=== PATIENT | male | born 1960 | race Caucasian/White ===

== ENCOUNTER 2016-11-02 17:49 | Inpatient (IN) | payer BC ==
[2016-11-02] MEDS ORDERED: NS 0.9% 1000 ML* 1,000 ML IV ONE (19:27)
[2016-11-02 19:38] LABS: Hematocrit 45 % (42-52); Hemoglobin 14.9 g/dl (14.0-18.0); Mean Corpuscular HGB Conc 33 g/dl (31-36); Mean Corpuscular Hemoglobin 27 pg (27-31); Mean Corpuscular Volume 82 fL (80-94); Mean Platelet Volume 9 um3 (7.4-10.4); Red Blood Count 5.49 10^6/ul (4.0-5.4); Red Cell Distribution Width 15 % (10.5-15); White Blood Count 8.7 10^3/ul (3.5-10.8)
[2016-11-02 19:39] LABS: Add Diff/Slide Review? Slide Review Added; Comments Flag Yes
[2016-11-02 20:03] LABS: Albumin 3.6 g/dL (3.2-5.2); BUN/Creatinine Ratio 14.4 (8-20); EGFR African American 48.5 (>60); EGFR Non-African American 37.7 (>60); Total Bilirubin 0.8 mg/dL (0.2-1.0); Total Protein 7.6 g/dL (6.4-8.9)
[2016-11-02] MEDS ORDERED: HYDROmorphone INJ* 1 MG/ML CARPUJECT SYRINGE IV ONE (20:16)
[2016-11-02] MEDS ORDERED: levETIRAcetam TAB* 500 MG PO ONE (20:16)
[2016-11-02] MEDS ORDERED: Labetalol IV* 5 MG/ML 20 ML VIAL IV PUSH ONE (20:16)
[2016-11-02 20:20] LABS: Erythrocyte Sed Rate 24 mm/Hr (0-20)
[2016-11-02] MEDS ORDERED: Iodixanol* (CONTRAST) 320 MG/ML 100 ML SDV IV ONE (20:20)
--- NOTE | 2016-11-02 20:21 | RAD ---
indication: Headache and right ear pain since injury 5 days earlier COMPARISON: None A CT scan of the brain and c-spine was performed without intravenous contrast enhancement. Contiguous axial sections were obtained from the lung apices through the vertex. BRAIN: There is a mixed attenuation subdural hematoma overlying the right cerebral hemisphere measuring up to 1.1 cm in thickness (image 17 of 36). There is approximately 7 mm of right to left midline shift with visible compression on the right lateral ventricles. No uncal or transtentorial herniation is identified. Otherwise the bess-white matter differentiation is adequately maintained. No significant bony abnormality is present. The mastoid air cells are appropriately aerated. The visualized paranasal sinuses are clear. C-SPINE: There is straightening of the normal cervical lordosis on the sagittal view images. The vertebral bodies and facet joints are otherwise appropriately aligned. There is no radiographically apparent fracture or dislocation of the cervical spine. Mild degenerative changes include loss of intervertebral disc height and mild early marginal osteophyte formation. There is no hyperdense material in the cervical canal to indicate hemorrhage. The visualized musculature and soft tissues are normal. There is no gross lymphadenopathy visualized. The visualized portion of the lung apices are clear. IMPRESSION: 1. Right cerebral hemisphere subdural hematoma measuring up to 1.2 cm in thickness causing approximately 7 mm of right to left midline shift with visible compression on the right lateral ventricles. 2. Nonspecific straightening of the normal cervical lordosis and mild degenerative changes without radiographically apparent traumatic fracture or dislocation. Findings were discussed with Dr. Stearns over the telephone at 2000 hours on November 02, 2016.
--- NOTE | 2016-11-02 20:32 | ED ---
Yue Berry Claudia, scribed for Cindy Stearns MD on 11/02/16 at 1915 . Headache - HPI Summary HPI Summary: 56 year old male presents to the ED with a MONTAGUE post mechanical fall. Pt notes he slipped and fell on ice and hit the back of his head on . He notes that he 'saw stars' when he hit is head. His notes that he has been acting normal except that he has been unable to sleep due to the pain. Pt notes he has had this dull MONTAGUE since Friday10/28/16. He describes the MONTAGUE as on the right side of his head with pain behind his right eye. Pt notes pain is aggravated when he closes his eyes. He notes intermittent pain on a scale of 4-10. Pt has not seen his PCP david Saldaña. Pt denies any PMHx of M[place]UE or migraines as well as any fever or chills. Pt denies any possible Carbon Monoxide exposure. - History Of Current Complaint Chief Complaint: EDHeadache Stated Complaint: FALL/HEAD INJURY,HEADACHES Time Seen by Provider: 11/02/16 18:50 Hx Obtained From: Patient Onset/Duration: Gradual Onset, Started days ago Initially Headache Was: Initial Pain Scale(0-10)= - 4-10 Currently Pain Is: Current Pain Scale(0-10)= - 4-10 Timing: Intermittent, Lasting: Character: Dull Location of Headache: Other: - right sided behind the right eye Aggravating Factor: Other - closing eyes - Allergies/Home Medications Allergies/Adverse Reactions: Allergies Allergy/AdvReac Type Severity Reaction Status Date / Time Nifedipine [From Procardia] Allergy Intermediate GI Upset Verified 11/02/16 18: 01 PMH/Surg Hx/FS Hx/Imm Hx Previously Healthy: Yes Endocrine/Hematology History: Denies: Hx Diabetes, Hx Thyroid Disease Cardiovascular History: Reports: Hx Coronary Artery Disease, Hx Hypertension, Other Cardiovascular Problems/Disorders - PERICARDIAL EFFUSION 2006, ANEURYSM Denies: Hx Angina, Hx Hypercholesterolemia, Hx Myocardial Infarction Respiratory History: Reports: Other Respiratory Problems/Disorders - chronic cough Denies: Hx Asthma, Hx Chronic Obstructive Pulmonary Disease (COPD) GI History: Denies: Hx Ulcer Sensory History: Reports: Hx Contacts or Glasses - reading glasses Opthamlomology History: Reports: Hx Contacts or Glasses - reading glasses - Surgical History Surgery Procedure, Year, and Place: 2006: tried to do a cardiac cath but ws unable to - ended up doing having a aurelio-cardial effusuion drained. Infectious Disease History: No Infectious Disease History: Denies: Hx Clostridium Difficile, Hx Hepatitis, Hx Human Immunodeficiency Virus (HIV), Hx of Known/Suspected MRSA, Hx Shingles, Hx Tuberculosis, Hx Known/ Suspected VRE, Hx Known/Suspected VRSA, History Other Infectious Disease, Traveled Outside the [place] in Last 30 Days - Family History Known Family History: Positive: Diabetes - Social History Lives: With Family Alcohol Use: None Substance Use Type: Reports: None Smoking Status (MU): Never Smoked Tobacco Review of Systems Constitutional: Negative Eyes: Other - pain behind his right eye ENT: Negative Cardiovascular: Negative Respiratory: Negative Gastrointestinal: Negative Genitourinary: Negative Musculoskeletal: Negative Skin: Negative Positive: Headache Psychological: Normal All Other Systems Reviewed And Are Negative: Yes Physical Exam Triage Information Reviewed: Yes Vital Signs On Initial Exam: Initial Vitals Temp Pulse Resp BP Pulse Ox 98.9 F 87 16 205/115 100 11/02/16 17:50 11/02/16 17:50 11/02/16 17:50 11/02/16 17:50 11/02/16 17:50 Vital Signs Reviewed: Yes Appearance: Positive: Well-Appearing, No Pain Distress Skin: Positive: Warm, Skin Color Reflects Adequate Perfusion, Dry Eyes: Positive: EOMI, JASKARAN Neck: Positive: Supple, Nontender Respiratory/Lung Sounds: Positive: Clear to Auscultation, Breath Sounds Present Cardiovascular: Positive: RRR. Negative: Murmur, Rub Abdomen Description: Positive: Nontender, Soft Bowel Sounds: Positive: Present Musculoskeletal: Positive: Strength/ROM Intact Neurological: Positive: Sensory/Motor Intact, Alert, Oriented to Person Place, Time, CN Intact II-III Psychiatric: Positive: Affect/Mood Appropriate Diagnostics - Vital Signs Vital Signs Temp Pulse Resp BP Pulse Ox 11/02/16 17:50 98.9 F 87 16 205/115 100 - Laboratory Lab Results: Lab Results 11/02/16 11/02/16 11/02/16 Range/Units 18:50 18:50 18:50 WBC 8.7 (3.5-10.8) 10^3/ul RBC 5.49 H (4.0-5.4) 10^6/ul Hgb 14.9 (14.0-18.0) g/dl Hct 45 (42-52) % MCV 82 (80-94) fL MCH 27 (27-31) pg MCHC 33 (31-36) g/dl RDW 15 (10.5-15) % Plt Count 184 (150-450) 10^3/ul MPV 9 (7.4-10.4) um3 Neut % (Auto) 67.5 (38-83) % Lymph % (Auto) 14.2 L (25-47) % [place] % (Auto) 7.7 (1-9) % Eos % (Auto) 8.3 H (0-6) % Baso % (Auto) 2.3 H (0-2) % Absolute Neuts (auto) 5.9 (1.5-7.7) 10^3/ul Absolute Lymphs (auto) 1.2 (1.0-4.8) 10^3/ul Absolute Monos (auto) 0.7 (0-0.8) 10^3/ul Absolute Eos (auto) 0.7 H (0-0.6) 10^3/ul Absolute Basos (auto) 0.2 (0-0.2) 10^3/ul Absolute Nucleated RBC 0.01 10^3/ul Nucleated RBC % 0.1 ESR 24 H (0-20) mm/Hr Sodium 135 (133-145) mmol/L Potassium 4.0 (3.5-5.0) mmol/L Chloride 103 (101-111) mmol/L Carbon Dioxide 24 (22-32) mmol/L Anion Gap 8 (2-11) mmol/L BUN 27 H (6-24) mg/dL Creatinine 1.87 H (0.67-1.17) mg/dL Est GFR ( Amer) 48.5 (>60) Est GFR (Non-Af Amer) 37.7 (>60) BUN/Creatinine Ratio 14.4 (8-20) Glucose 115 H (70-100) mg/dL Lactic Acid 1.3 (0.5-2.0) mmol/L Calcium 9.0 (8.6-10.3) mg/dL Total Bilirubin 0.80 (0.2-1.0) mg/dL AST 34 (13-39) U/L ALT 24 (7-52) U/L Alkaline Phosphatase 101 (34-104) U/L Total Protein 7.6 (6.4-8.9) g/dL Albumin 3.6 (3.2-5.2) g/dL Globulin 4.0 (2-4) g/dL Albumin/Globulin Ratio 0.9 L (1-3) Result Diagrams: 11/02/16 18:50 11/02/16 18:50 Lab Statement: Any lab studies that have been ordered have been reviewed, and results considered in the medical decision making process. - CT BRAIN CT CT Interpretation: Positive (See Comments) - RIGHT CEREBRAL HEMISPHERE SUBDURAL HEMATOMA MEASURING 1.2CM IN THICKNESS CAUSING APPROXIMATELY 7MM OF RIGHT TO LEFT MIDLINE SHIFT WITH VISIBLE COMPRESSION ON THE RIGHT LATERAL VENTRICLES. NON SPECIFIC STRAIGHTENING OF THE NORMAL CERVICAL LORDOSIS AND MILD DEGENERATIVE CHNAGES WITHOUT RADIOGRAPHICALY APPARENT TRAUMATIC FRACTURE OF DISOLCATION. FINDINGS WERE DISCUSSED WITH DR. STEARNS AT [address] Interpretation Completed By: Radiologist CERVICAL SPINE CT CT Interpretation: Positive (See Comments) - RIGHT CEREBRAL HEMISPHERE SUBDURAL HEMATOMA MEASURING 1.2CM IN THICKNESS CAUSING APPROXIMATELY 7MM OF RIGHT TO LEFT MIDLINE SHIFT WITH VISIBLE COMPRESSION ON THE RIGHT LATERAL VENTRICLES. NON SPECIFIC STRAIGHTENING OF THE NORMAL CERVICAL LORDOSIS AND MILD DEGENERATIVE CHANGES WITHOUT RADIOGRAPHICALY APPARENT TRAUMATIC FRACTURE OF DISOLCATION. FINDINGS WERE DISCUSSED WITH DR. STEARNS AT [address] Interpretation Completed By: Radiologist - EKG 18:04 EKG Rhythm: Atrial Fibrillation - 84 beats/min EKG Interpretation: LBBB non-changed from 05/09/2015 Re-Evaluation - Re-Evaluation 1 Re-Evaluation Time: 19:38 Comment: Brain CT results are discussed with patient and family. It is also discussed that Dr. Cardona is notified of the patient. Headache Course/Dx - Course Course Of Treatment: 56 yo male who fell on Fri of last week with development of M[place] subsequent subdural found today he has been taking asa at home. Dr. Cardona is consutling on pt asked for 6 pack of platelets to be given and for bp to be lowered with labetalol. Pt has family hx of sah and so he will either get a CTa head and neck tonight or an MRI angio tomorrow due to renal insufficiency - Diagnoses Provider Diagnoses: Subdural hematoma, Hypertension, Chronic renal insufficiency - Physician Notifications Discussed Care Of Patient With: Dr Cardona is notified of the patient as well as the results of the Brain CT. Dr. Cardona will come to ED and consult with the patient. Dr. Cardona will admit patient to [facility] [place]. Time Discussed With Above Provider: 19:43 Discharge - Discharge Plan Condition: Stable Disposition: ADMITTED TO [facility] The documentation as recorded by the Yue moy Claudia accurately reflects the service I personally performed and the decisions made by , Cindy Stearns MD.
--- NOTE | 2016-11-02 20:33 | ED ---
Head Injury - HPI Summary HPI Summary: 56 year old male presents to the ED with a MONTAGUE post mechanical fall. Pt notes he slipped and fell on ice and hit the back of his head on . He notes that he 'saw stars' when he hit is head. His notes that he has been acting normal except that he has been unable to sleep due to the pain. Pt notes he has had this dull MONTAGUE since Friday10/28/16. He describes the [place] as on the right side of his head with pain behind his right eye. Pt notes pain is aggravated when he closes his eyes. He notes intermittent pain on a scale of 4-10. Pt has not seen his PCP fot Sx. Pt denies any PMHx of [place] or migraines as well as any fever or chills. Pt denies any possible Carbon Monoxide exposure. - History Of Current Complaint Chief Complaint: EDHeadache Stated Complaint: FALL/HEAD INJURY,HEADACHES Time Seen by Provider: 11/02/16 18:50 Hx Obtained From: Patient Mechanism Of Injury: Fall From Height Of:, Fall From A Standing Position Onset/Duration: Started Days Ago - 10, Traumatic Onset of Pain: Days - 5 Severity Currently: Severe Severity Initially: Mild Pain Intensity: 8 Pain Scale Used: 0-10 Numeric Location of Head Injury: Temporal Location: Discrete At: - right Character: Sharp Aggravating Factor(s): Other: - eye closing Associated Signs And Symptoms: Negative Anticoagulant Therapy: ASA - He took ASA and Ibprogen for headache for last 5 days, Platelet Inhibitors - Risk Factors SDH Risk Factor: Male, Recent Trauma - Allergies/Home Medications Allergies/Adverse Reactions: Allergies Allergy/AdvReac Type Severity Reaction Status Date / Time Nifedipine [From Procardia] Allergy Intermediate GI Upset Verified 11/02/16 18: 01 PMH/Surg Hx/FS Hx/Imm Hx Previously Healthy: Yes Endocrine/Hematology History: Denies: Hx Diabetes, Hx Thyroid Disease Cardiovascular History: Reports: Hx Aneurysm - mother side relatives, Hx Coronary Artery Disease, Hx Hypertension, Other Cardiovascular Problems/ Disorders - PERICARDIAL EFFUSION 2005, ANEURYSM Denies: Hx Angina, Hx Hypercholesterolemia, Hx Myocardial Infarction Respiratory History: Reports: Other Respiratory Problems/Disorders - chronic cough Denies: Hx Asthma, Hx Chronic Obstructive Pulmonary Disease (COPD) GI History: Denies: Hx Ulcer Sensory History: Reports: Hx Contacts or Glasses - reading glasses Opthamlomology History: Reports: Hx Contacts or Glasses - reading glasses - Surgical History Surgery Procedure, Year, and Place: 2006: tried to do a cardiac cath but ws unable to - ended up doing having a aurelio-cardial effusuion drained. Infectious Disease History: No Infectious Disease History: Denies: Hx Clostridium Difficile, Hx Hepatitis, Hx Human Immunodeficiency Virus (HIV), Hx of Known/Suspected MRSA, Hx Shingles, Hx Tuberculosis, Hx Known/ Suspected VRE, Hx Known/Suspected VRSA, History Other Infectious Disease, Traveled Outside the [place] in Last 30 Days - Social History Alcohol Use: None Substance Use Type: Reports: None Smoking Status (MU): Never Smoked Tobacco Review of Systems Constitutional: Negative Eyes: Negative ENT: Negative Cardiovascular: Negative Respiratory: Negative Gastrointestinal: Negative Positive: see HPI All Other Systems Reviewed And Are Negative: No Physical Exam Triage Information Reviewed: Yes Vital Signs On Initial Exam: Initial Vitals Temp Pulse Resp BP Pulse Ox 98.9 F 87 16 205/115 100 11/02/16 17:50 11/02/16 17:50 11/02/16 17:50 11/02/16 17:50 11/02/16 17:50 Vital Signs Reviewed: Yes Appearance: Positive: Pain Distress Skin: Positive: Warm Head/Face: Positive: Normal Head/Face Inspection ENT: Positive: Normal ENT inspection Dental: Positive: Gross Decay/Caries @ Neck: Positive: Supple Respiratory/Lung Sounds: Positive: Clear to Auscultation Cardiovascular: Positive: Normal Abdomen Description: Positive: Nontender Bowel Sounds: Positive: Present Neurological: Positive: Normal, Sensory/Motor Intact, Alert, Oriented to Person Place, Time, CN Intact II-III, Reflexes Intact Psychiatric: Positive: Normal - Matias Coma Scale Best Eye Response: 4 - Spontaneous Best Motor Response: 6 - Obeys Commands Best Verbal Response: 5 - Oriented Procedures - Procedure Summary Procedure Summary: NO Diagnostics - Vital Signs Vital Signs Temp Pulse Resp BP Pulse Ox 11/02/16 17:50 98.9 F 87 16 205/115 100 - Laboratory Lab Results: Lab Results 11/02/16 11/02/16 11/02/16 Range/Units 18:50 18:50 18:50 WBC 8.7 (3.5-10.8) 10^3/ul RBC 5.49 H (4.0-5.4) 10^6/ul Hgb 14.9 (14.0-18.0) g/dl Hct 45 (42-52) % MCV 82 (80-94) fL MCH 27 (27-31) pg MCHC 33 (31-36) g/dl RDW 15 (10.5-15) % Plt Count 184 (150-450) 10^3/ul MPV 9 (7.4-10.4) um3 Neut % (Auto) 67.5 (38-83) % Lymph % (Auto) 14.2 L (25-47) % [place] % (Auto) 7.7 (1-9) % Eos % (Auto) 8.3 H (0-6) % Baso % (Auto) 2.3 H (0-2) % Absolute Neuts (auto) 5.9 (1.5-7.7) 10^3/ul Absolute Lymphs (auto) 1.2 (1.0-4.8) 10^3/ul Absolute Monos (auto) 0.7 (0-0.8) 10^3/ul Absolute Eos (auto) 0.7 H (0-0.6) 10^3/ul Absolute Basos (auto) 0.2 (0-0.2) 10^3/ul Absolute Nucleated RBC 0.01 10^3/ul Nucleated RBC % 0.1 ESR 24 H (0-20) mm/Hr Sodium 135 (133-145) mmol/L Potassium 4.0 (3.5-5.0) mmol/L Chloride 103 (101-111) mmol/L Carbon Dioxide 24 (22-32) mmol/L Anion Gap 8 (2-11) mmol/L BUN 27 H (6-24) mg/dL Creatinine 1.87 H (0.67-1.17) mg/dL Est GFR ( Amer) 48.5 (>60) Est GFR (Non-Af Amer) 37.7 (>60) BUN/Creatinine Ratio 14.4 (8-20) Glucose 115 H (70-100) mg/dL Lactic Acid 1.3 (0.5-2.0) mmol/L Calcium 9.0 (8.6-10.3) mg/dL Total Bilirubin 0.80 (0.2-1.0) mg/dL AST 34 (13-39) U/L ALT 24 (7-52) U/L Alkaline Phosphatase 101 (34-104) U/L Total Protein 7.6 (6.4-8.9) g/dL Albumin 3.6 (3.2-5.2) g/dL Globulin 4.0 (2-4) g/dL Albumin/Globulin Ratio 0.9 L (1-3) Result Diagrams: 11/03/16 07:26 11/03/16 05:43 Lab Statement: Any lab studies that have been ordered have been reviewed, and results considered in the medical decision making process. - CT BRAIN CT CT Interpretation: Positive (See Comments) - RIGHT CEREBRAL HEMISPHERE SUBDURAL HEMATOMA MEASURING 1.2CM IN THICKNESS CAUSING APPROXIMATELY 7MM OF RIGHT TO LEFT MIDLINE SHIFT WITH VISIBLE COMPRESSION ON THE RIGHT LATERAL VENTRICLES. NON SPECIFIC STRAIGHTENING OF THE NORMAL CERVICAL LORDOSIS AND MILD DEGENERATIVE CHNAGES WITHOUT RADIOGRAPHICALY APPARENT TRAUMATIC FRACTURE OF DISOLCATION. FINDINGS WERE DISCUSSED WITH DR. CEVALLOS AT [address] Interpretation Completed By: Radiologist CERVICAL SPINE CT CT Interpretation: Positive (See Comments) - RIGHT CEREBRAL HEMISPHERE SUBDURAL HEMATOMA MEASURING 1.2CM IN THICKNESS CAUSING APPROXIMATELY 7MM OF RIGHT TO LEFT MIDLINE SHIFT WITH VISIBLE COMPRESSION ON THE RIGHT LATERAL VENTRICLES. NON SPECIFIC STRAIGHTENING OF THE NORMAL CERVICAL LORDOSIS AND MILD DEGENERATIVE CHANGES WITHOUT RADIOGRAPHICALY APPARENT TRAUMATIC FRACTURE OF DISOLCATION. FINDINGS WERE DISCUSSED WITH DR. CEVALLOS AT [address] Interpretation Completed By: Radiologist - EKG 18:04 EKG Rhythm: Atrial Fibrillation - 84 beats/min EKG Interpretation: LBBB non-changed from 05/09/2015 Re-Evaluation - Re-Evaluation 1 Re-Evaluation Time: 19:38 Comment: Brain CT results are discussed with patient and family. Head Injury Course/Dx Assessment/Plan: CTA or MRA to rule out aneurysm. Control SBP less than 160 mmhg ,. Platelet transfusion due to ASA and SDH ,. Neurocheck q2h for 12 h then q4h,. Repeat CT head tomorrow,. keppra 750 mmhg bid po for 7 days ,. advance care tomorrow after stable CT. - Diagnoses Differential Diagnosis/HQI/PQRI: Hematoma - Right acute on subacute SDH Provider Diagnoses: Subdural hematoma, Hypertension, Chronic renal insufficiency During the Visit The Following Alert/Code Occurred: Trauma - [facility] - Physician Notifications Discussed Care Of Patient With: ED and patient family Instructed by Provider To: Admit As Inpatient - repeat CT head tomorrow, CTA or MRA to rule out aneurysm Control SBP less than 160 mmhg Platelet transfusion due to ASA and SDH Neurocheck q2h for 12 h then q4h keppra 750 mmhg bid po for 7 days advance care tomorrow after stable CT Admit/Transition Orders Completed By ED Provider: No - Critical Care Time Critical Care Time: 30-74 min Discharge - Discharge Plan Condition: Stable Disposition: ADMITTED TO [facility]
--- NOTE | 2016-11-02 21:29 | RAD ---
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 COMPARISON: Same day CT of the brain without contrast TECHNIQUE: A CT angiogram of the head and neck was performed with 80 cc of Visipaque 320. Contiguous axial sections were obtained from the thoracic inlet through the north fork of Nielson. Images were reconstructed in the sagittal, coronal planes and in a 3-D volume rendered format. The distal cervical internal carotid artery diameter is used as the denominater for stenosis measurement. CTA NECK: The common and internal carotid arteries are patent without hemodynamically significant stenosis. Right: Just below the bifurcation the right common carotid artery measures 8 mm in diameter and the internal carotid artery measures 8 mm in diameter just beyond the bifurcation indicating 0% stenosis at the carotid bulb. There is a small amount of calcified atherosclerosis at the right carotid bulb. Left: Just below the bifurcation the left common carotid artery measures 8 mm in diameter and the internal carotid artery measures 8 mm in diameter just beyond the bifurcation indicating 0% stenosis at the carotid bulb. There is a moderate amount of calcified atherosclerosis at the left carotid bulb. The vertebral arteries are patent without gross abnormality. CTA of the brain: The internal carotid, anterior and middle cerebral arteries appear are patent without high grade stenosis or occlusion. The vertebral, basilar and posterior cerebral arteries appear patent without high grade stenosis or occlusion. The left posterior communicating artery is extremely diminutive or incomplete. Communicating with the distal branches of the right middle cerebral artery along the lateral aspect of the right temporal lobe (for example image 224 of 299), the arteries appear hypertrophied relative to the noninjured contralateral side. Extending from this area of arterial hypertrophy is an asymmetric blood vessel (for example image 208 of 299) that can be followed inferiorly eventually communicating with the right transverse sinus. Again seen is a 1.2 cm in thickness subdural hematoma. There is no arterial phase filling in the space to indicate active hemorrhage. IMPRESSION: 1. Left greater than right calcified atherosclerosis of the carotid bulbs with no evidence of pathologic carotid artery stenosis. 2. Again seen is a right hemispheric subdural hematoma without active arterial phase hemorrhage into the extra-axial bleed. 3. The distal branches of the right middle cerebral artery adjacent to the subdural hematoma are hypertrophied relative to the contralateral side. There is an early filling blood vessel traveling inferiorly along the right temporal lobe that appears to communicate with the right transverse sinus. 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 Findings were discussed with Dr. Stearns over the telephone at 2120 hours on November 02, 2016.
[2016-11-02 21:38] LABS: Urine Bacteria Absent (Absent); Urine Bilirubin Negative (Negative); Urine Glucose Negative (Negative); Urine Nitrite Negative (Negative)
[2016-11-02] MEDS ORDERED: Senna TAB PO PRN (21:57)
[2016-11-02] MEDS ORDERED: Docusate CAP* 100 MG PO PRN (21:57)
[2016-11-02] MEDS ORDERED: Ondansetron INJ* 2 MG/ML VIAL IV PRN (21:57)
[2016-11-02 22:43] LABS: Salicylate 3.1 mg/dL (<30)
[2016-11-03] MEDS: Morphine INJ* 2 MG/ML 1 ML CARPUJECT IV PRN ×2 (00:35→04:43)
[2016-11-03] MEDS: hydrALAZINE IV* 20 MG/ML VIAL IV SLOW PU PRN ×2 (00:41→11:20)
[2016-11-03] MEDS: oxyCODONE TAB* 5 MG TAB PO PRN ×3 (02:13→13:21)
[2016-11-03] MEDS ORDERED: Labetalol IV* 5 MG/ML 20 ML VIAL IV PUSH ONE ×2 (04:25→19:37)
[2016-11-03 06:01] LABS: Hematocrit 43 % (42-52); Hemoglobin 14.3 g/dl (14.0-18.0); Mean Corpuscular HGB Conc 34 g/dl (31-36); Mean Corpuscular Hemoglobin 27 pg (27-31); Mean Corpuscular Volume 81 fL (80-94); Mean Platelet Volume 8 um3 (7.4-10.4); Red Blood Count 5.27 10^6/ul (4.0-5.4); Red Cell Distribution Width 15 % (10.5-15); White Blood Count 9.6 10^3/ul (3.5-10.8)
--- NOTE | 2016-11-03 06:08 | HP ---
HISTORY AND PHYSICAL: DATE OF ADMISSION: 11/02/16 TIME OF EVALUATION: 2199. PRIMARY CARE PHYSICIAN: Bruce Browning MD CHIEF COMPLAINT: Headache. HISTORY OF PRESENT ILLNESS: This is a 56-year-old male with a past medical history of CKD, atrial fibrillation, hypertension, who presents to the emergency room with worsening headache. The patient states on the , he slipped and fell on the ice. He denied any loss of consciousness. No nausea or vomiting at that time. On the , his headache pain began to become more worse on the right side. He started taking aspirin, which seemed to be helping and then on , the , the aspirin was not helping, so he took way more than he should have and he states he took about 10 tablets of aspirin per day for the past 7 days. He also is taking a lot of Advil, he states about 20 tablets over the week, and the pain continued to get worse. The pain is located over the right side of his head. He denies any blurry vision. No nausea or vomiting. No chest pain. No shortness of breath. Otherwise, remaining review of systems is negative. In the emergency room, the patient had a CAT scan done and he was found to have a right cerebral hemisphere subdural hematoma with 7 mm of [id number] midline shift with visible compressions on the right lateral ventricle. Dr. Cardona from Neurosurgery was consulted and he came in to evaluate the patient and he recommended overnight admission with platelets, Keppra, and followup in the morning. He did recommend the patient could go to the floor and have neuro checks q.2 hours overnight. In the emergency room, the patient was given platelets. He was given Dilaudid, labetalol, Keppra 750 mg, and a liter of fluids. PAST MEDICAL HISTORY: 1. Hypertension. 2. History of pericardial effusion requiring a pericardial window. 3. History of AAA. 4. CKD. 5. Atrial fibrillation. MEDICATIONS: The patient states he is on several medications. His took his wallet home that has his list of medications. ALLERGIES: Allergic to NIFEDIPINE. FAMILY HISTORY: Reviewed and noncontributory. 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 He lives with his , Rosalba Cannon, who is his healthcare proxy, . He denies any tobacco use. He quit alcohol in 1980. No illicit drug use. CODE STATUS: Full code. REVIEW OF SYSTEMS: As mentioned in the HPI. PHYSICAL EXAMINATION GENERAL: The patient in some discomfort secondary to his pain. VITAL SIGNS: Temp is 98.9, pulse rate is 90, respiratory rate is 18, oxygen saturation is 96% on room air, blood pressure is 190/100. HEENT: Pupils are equal and reactive, anicteric. Head normocephalic. Unable to appreciate any hematoma or skull depression. NECK: Supple. No lymphadenopathy. No nuchal rigidity. Full range of motion. RESPIRATORY: Clear to auscultation. No wheezes, rhonchi, or rales. CARDIAC: Irregularly irregular rate and rhythm, systolic murmur most prominent over the left sternal base. ABDOMEN: Soft, nontender, and nondistended. EXTREMITIES: No clubbing, cyanosis, or edema. +1 DPs. NEUROLOGICAL: Alert and oriented x3. No focal neurologic deficits. DIAGNOSTIC STUDIES/LAB DATA: White count 8.7, hemoglobin 14.9, hematocrit 45, platelets 184. Sed rate is 24. Sodium 135, potassium 4, chloride 103, bicarb 24, BUN 27, creatinine 1.87, glucose 115. Urinalysis unremarkable. Radiographic data: Head CT: Right cerebral hemisphere subdural hematoma measuring up to 1.2 cm in thickness causing approximately 7 mm of the right-to- left midline shift with visible compression on the right lateral ventricle, nonspecific straightening of the normal cervical lordosis, and mild degenerative changes without radiographical apparent traumatic fracture or dislocation. Cervical spine CT as above. Head CTA: Left greater than right calcified atherosclerosis of the carotid bulb. No evidence of pathologic carotid artery stenosis. Again, seen is the right hemispheric subdural hematoma without active arterial phase hemorrhage into the extraaxial . At distal branch of the right middle cerebral artery , adjacent to the subdural hematoma, hypertrophy relative to the contralateral side, there is an early filling blood vessel traveling inferiorly along the right temporal lobe that appears to communicate with the right transverse sinus. 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 EKG shows atrial fibrillation with left bundle branch block with no significant change from prior EKG. ASSESSMENT AND PLAN: This is a 56-year-old male who presents with worsening headache after falling on the , found to have a subacute right subdural hematoma. Subdural hematoma. Assessment: The patient has no neurologic findings. This is subacute as he did fall on the . He has been taking significant amount of aspirin and ibuprofen. Neurosurgery, Dr. Cardona, evaluated him and recommended admission for observation. The patient is to be getting platelets. Plan: Admission to telemetry. The patient is getting platelets. We will check a salicylate level in the setting of his high aspirin quantity as he reported. We will order a CT in the morning as recommended by Neurosurgery. Continue him on the Keppra 750 mg p.o. b.i.d. for 7 days for prophylaxis. Goal blood pressure is less than 160 per Neurosurgery. Neuro checks q.2 hours, pain control, and antiemetics. CHRONIC MEDICAL PROBLEMS: 1. We will hold all anticoagulation, we will get a med rec in the morning to resume his home medications as prescribed. 2. FEN. Place him on a heart-healthy diet. 3. DVT prophylaxis. Monitor risk, place him on SCDs. 4. Code status, full code. PATIENT TIME: Greater than 45 minutes was spent doing the history and physical , more than half the time was spent in direct patient contact. CC: Bruce Browning MD* [id number]/CPS #: [id number]
[2016-11-03 06:12] LABS: BUN/Creatinine Ratio 15.3 (8-20); Calcium 8.9 mg/dL (8.6-10.3); EGFR African American 54.1 (>60); EGFR Non-African American 42.1 (>60); Potassium 3.8 mmol/L (3.5-5.0)
[2016-11-03 07:59] LABS: Mean Platelet Volume 8 um3 (7.4-10.4)
[2016-11-03] MEDS: levETIRAcetam TAB* 500 MG PO SCH ×2 (09:10→21:43)
--- NOTE | 2016-11-03 11:04 | RAD ---
INDICATION: Follow-up imaging in a patient with a subdural hematoma and arteriovenous fistula identified on previous day CT/CTA. COMPARISON: CT brain November 02, 2016 TECHNIQUE: Contiguous axial sections of the brain were obtained from the skull base to the vertex without contrast. FINDINGS: Again seen is a mostly hyperattenuating heterogeneous collection external to the right hemisphere measuring about 1.1 cm in greatest thickness. This subdural hematoma is exerting right to left mass effect causing compression of the right anterior and posterior lateral ventricle and approximately millimeters of midline shift. The brain is otherwise normal in appearance. No significant focal osseous abnormality is present. The visualized portion of the paranasal sinuses and mastoid air cells appear clear. IMPRESSION: No significant change in the right hemisphere subdural hematoma resulting in compression of the ventricle and 8 mm of right to left midline shift.
--- NOTE | 2016-11-03 11:09 | PN ---
Progress Note - Progress Note Note: C/O headache better, No N & V. No visual changes, no weakness, numbness and seizure . Objective Vital Signs Temp 97.7 F 11/03/16 07:40 Pulse 59 11/03/16 07:40 Resp 18 11/03/16 09:18 BP 148/88 11/03/16 07:40 Pulse Ox 93 11/03/16 07:40 Intake & Output 11/02/16 11/03/16 11/03/16 19:59 07:59 19:59 Intake Total 301 240 Balance 301 240 Weight 264 lb 14.4 oz 245 lb 14.4 oz Intake: IV Fluids 12 NS (0.9%) 12 Oral 75 240 Platelets 214 Other: Estimated Void Medium # Bowel Movements 0 # Voids 2 Physical Exam: GEN: No apparent distress Mental Status: Awake and oriented x 3 Cranial Nerves: PERRL, face symmetric, tongue midline , Motor Exam: Strength equal and strong bilaterally, no drift Sensory Exam: Sensation intact grossly to light touch, no extinction WBC 9.4 10^3/ul (3.5-10.8) 11/03/16 05:47 RBC 3.86 10^6/ul (4.0-5.4) L 11/03/16 05:47 Hgb 11.5 g/dl (12.0-16.0) L 11/03/16 05:47 Hct 35 % (35-47) 11/03/16 05:47 MCV 89 fL (80-97) 11/03/16 05:47 MCH 30 pg (27-31) 11/03/16 05:47 MCHC 33 g/dl (31-36) 11/03/16 05:47 RDW 13 % (10.5-15) 11/03/16 05:47 Plt Count 320 10^3/ul (150-450) 11/03/16 05:47 MPV 8 um3 (7.4-10.4) 11/03/16 05:47 Neut % (Auto) 80.8 % (38-83) 11/03/16 05:47 Lymph % (Auto) 12.9 % (25-47) L 11/03/16 05:47 [place] % (Auto) 6.0 % (1-9) 11/03/16 05:47 Eos % (Auto) 0 % (0-6) 11/03/16 05:47 Baso % (Auto) 0.3 % (0-2) 11/03/16 05:47 Absolute Neuts (auto) 7.5 10^3/ul (1.5-7.7) 11/03/16 05:47 Absolute Lymphs (auto) 1.2 10^3/ul (1.0-4.8) 11/03/16 05:47 Absolute Monos (auto) 0.6 10^3/ul (0-0.8) 11/03/16 05:47 Absolute Eos (auto) 0 10^3/ul (0-0.6) 11/03/16 05:47 Absolute Basos (auto) 0 10^3/ul (0-0.2) 11/03/16 05:47 Absolute Nucleated RBC 0 10^3/ul 11/03/16 05:47 Nucleated RBC % 0 11/03/16 05:47 INR (Anticoag Therapy) 0.94 (0.89-1.11) 11/02/16 20:05 Sodium 136 mmol/L (133-145) 11/02/16 20:05 Potassium 3.6 mmol/L (3.5-5.0) 11/02/16 20:05 Chloride 107 mmol/L (101-111) 11/02/16 20:05 Carbon Dioxide 25 mmol/L (22-32) 11/02/16 20:05 Anion Gap 4 mmol/L (2-11) 11/02/16 20:05 BUN 20 mg/dL (6-24) 11/02/16 20:05 Creatinine 0.57 mg/dL (0.51-0.95) 11/02/16 20:05 Est GFR ( Amer) 144.4 (>60) 11/02/16 20:05 Est GFR (Non-Af Amer) 112.3 (>60) 11/02/16 20:05 BUN/Creatinine Ratio 35.1 (8-20) H 11/02/16 20:05 Glucose 98 mg/dL (70-100) 11/02/16 20:05 Calcium 7.9 mg/dL (8.6-10.3) L 11/02/16 20:05 Total Bilirubin 0.30 mg/dL (0.2-1.0) 11/02/16 20:05 AST 14 U/L (13-39) 11/02/16 20:05 ALT 11 U/L (7-52) 11/02/16 20:05 Alkaline Phosphatase 44 U/L (34-104) 11/02/16 20:05 Total Protein 6.4 g/dL (6.4-8.9) 11/02/16 20:05 Albumin 3.7 g/dL (3.2-5.2) 11/02/16 20:05 Globulin 2.7 g/dL (2-4) 11/02/16 20:05 Albumin/Globulin Ratio 1.4 (1-3) 11/02/16 20:05 Beta HCG, Quant < 0.60 mIU/mL 11/02/16 20:05 Laboratory Results WBC 9.6 10^3/ul (3.5-10.8) 11/03/16 05:43 RBC 5.27 10^6/ul (4.0-5.4) 11/03/16 05:43 Hgb 14.3 g/dl (14.0-18.0) 11/03/16 05:43 Hct 43 % (42-52) 11/03/16 05:43 MCV 81 fL (80-94) 11/03/16 05:43 MCH 27 pg (27-31) 11/03/16 05:43 MCHC 34 g/dl (31-36) 11/03/16 05:43 RDW 15 % (10.5-15) 11/03/16 05:43 Plt Count 196 10^3/ul (150-450) 11/03/16 07:26 MPV 8 um3 (7.4-10.4) 11/03/16 07:26 Neut % (Auto) 66.2 % (38-83) 11/03/16 05:43 Lymph % (Auto) 14.7 % (25-47) L 11/03/16 05:43 [place] % (Auto) 10.5 % (1-9) H 11/03/16 05:43 Eos % (Auto) 7.4 % (0-6) H 11/03/16 05:43 Baso % (Auto) 1.2 % (0-2) 11/03/16 05:43 Absolute Neuts (auto) 6.3 10^3/ul (1.5-7.7) 11/03/16 05:43 Absolute Lymphs (auto) 1.4 10^3/ul (1.0-4.8) 11/03/16 05:43 Absolute Monos (auto) 1.0 10^3/ul (0-0.8) H 11/03/16 05:43 Absolute Eos (auto) 0.7 10^3/ul (0-0.6) H 11/03/16 05:43 Absolute Basos (auto) 0.1 10^3/ul (0-0.2) 11/03/16 05:43 Absolute Nucleated RBC 0 10^3/ul 11/03/16 05:43 Nucleated RBC % 0 11/03/16 05:43 ESR 24 mm/Hr (0-20) H 11/02/16 18:50 INR (Anticoag Therapy) 1.15 (0.89-1.11) H 11/03/16 05:43 APTT 33.3 seconds (26.0-36.3) 11/03/16 05:43 Sodium 135 mmol/L (133-145) 11/03/16 05:43 Potassium 3.8 mmol/L (3.5-5.0) 11/03/16 05:43 Chloride 104 mmol/L (101-111) 11/03/16 05:43 Carbon Dioxide 25 mmol/L (22-32) 11/03/16 05:43 Anion Gap 6 mmol/L (2-11) 11/03/16 05:43 BUN 26 mg/dL (6-24) H 11/03/16 05:43 Creatinine 1.70 mg/dL (0.67-1.17) H 11/03/16 05:43 Est GFR ( Amer) 54.1 (>60) 11/03/16 05:43 Est GFR (Non-Af Amer) 42.1 (>60) 11/03/16 05:43 BUN/Creatinine Ratio 15.3 (8-20) 11/03/16 05:43 Glucose 100 mg/dL (70-100) 11/03/16 05:43 Lactic Acid 1.3 mmol/L (0.5-2.0) 11/02/16 18:50 Calcium 8.9 mg/dL (8.6-10.3) 11/03/16 05:43 Total Bilirubin 0.80 mg/dL (0.2-1.0) 11/02/16 18:50 AST 34 U/L (13-39) 11/02/16 18:50 ALT 24 U/L (7-52) 11/02/16 18:50 Alkaline Phosphatase 101 U/L (34-104) 11/02/16 18:50 Total Protein 7.6 g/dL (6.4-8.9) 11/02/16 18:50 Albumin 3.6 g/dL (3.2-5.2) 11/02/16 18:50 Globulin 4.0 g/dL (2-4) 11/02/16 18:50 Albumin/Globulin Ratio 0.9 (1-3) L 11/02/16 18:50 Urine Color Straw 11/02/16 21:29 Urine Appearance Clear 11/02/16 21:29 Urine pH 5.0 (5-9) 11/02/16 21:29 Ur Specific [place] 1.010 (1.010-1.030) 11/02/16 21:29 Urine Protein Negative (Negative) 11/02/16 21:29 Urine Ketones Negative (Negative) 11/02/16 21:29 Urine Blood 1+ (Negative) H 11/02/16 21:29 Urine Nitrate Negative (Negative) 11/02/16 21:29 Urine Bilirubin Negative (Negative) 11/02/16 21:29 Urine Urobilinogen Negative (Negative) 11/02/16 21:29 Ur Leukocyte Esterase Negative (Negative) 11/02/16 21:29 Urine WBC (Auto) Trace(0-5/hpf) (Absent) 11/02/16 21:29 Urine RBC (Auto) Trace(0-2/hpf) (Absent) 11/02/16 21:29 Urine Bacteria Absent (Absent) 11/02/16 21:29 Hyaline Casts Present (Absent) H 11/02/16 21:29 Urine Glucose Negative (Negative) 11/02/16 21:29 Salicylates 3.10 mg/dL (<30) 11/02/16 18:50 Blood Type B Positive 11/02/16 18:52 Antibody Screen Negative 11/02/16 18:52 CT Showed stable right temp frontal acute on subacute SDH, with mild mass effect Assess/Plan/Problems-Billing Assessment: 56M, S/P slip and fall about 10 days ago with ASA intake and uncontrol HBP, stable, CT Showed stable right temp frontal acute on subacute SDH, with mild mass effect Plan Continue levetiracetam for 7 days only, IV ampicillin. SCD's in place. OK for sq Heparin 500o units BID Control SBP less 160 mmHg Advance care, PT OT and OOB, Follow up in clinic with repeat CT in 2 weeks
[2016-11-03] MEDS ORDERED: hydrALAZINE IV* 20 MG/ML VIAL IV SLOW PU ONE (14:02)
[2016-11-03] MEDS ORDERED: Labetalol IV* 5 MG/ML 20 ML VIAL IVPB ONE (16:05)
--- NOTE | 2016-11-03 17:28 | PN ---
Subjective Date of Service: 11/03/16 Interval History: . Interviewed and examined patient at bedside; Discussed case with Dr. Fonseca ; Reviewed previous notes and radiology results; Patient is a bit letheragic, but awakens to voice and is A&Ox3. and sister present in room. occasional [place] BP is consistently elevated - getting IV agents to help (hydralazine / labetalol ) Neurosurgery team actively involved Keppra -- can cause some sedation given IV. Upon better alertness and symptom control, could be dc'd tomorrow. . Family History: Unchanged from Admission Social History: Unchanged from Admission Past Medical History: Unchanged from Admission Objective Active Medications: . Acetaminophen (Tylenol Tab*) 650 mg PO Q4H PRN PRN Reason: FEVER/PAIN Docusate Sodium (Colace Cap*) 100 mg PO BID PRN PRN Reason: CONSTIPATION Hydralazine HCl (Apresoline Iv*) 5 mg IV SLOW PU Q6H PRN PRN Reason: BLOOD PRESSURE Last Admin: 11/03/16 11:20 Dose: 5 mg Levetiracetam (Keppra Tab*) 750 mg PO BID MARCELLE Last Admin: 11/03/16 09:10 Dose: 750 mg Morphine Sulfate (Morphine Inj (Syringe)*) 2 mg IV Q4H PRN PRN Reason: PAIN Last Admin: 11/03/16 04:43 Dose: 2 mg Ondansetron HCl (Zofran Inj*) 4 mg IV Q4H PRN PRN Reason: NAUSEA/VOMITING Oxycodone HCl (Roxycodone Tab*) 5 mg PO Q4H PRN PRN Reason: PAIN Last Admin: 11/03/16 13:21 Dose: 5 mg Senna (Senokot Tab*) 1 tab PO BID PRN PRN Reason: CONSTIPATION . Vital Signs 11/02/16 11/03/16 11/03/16 22:00 00:35 01:00 Temperature 97.5 F Pulse Rate 86 76 Respiratory 18 18 Rate Blood Pressure 169/92 (mmHg) O2 Sat by Pulse 94 97 Oximetry 11/03/16 11/03/16 11/03/16 01:35 02:13 03:45 Temperature 97.7 F Pulse Rate 69 Respiratory 18 18 16 Rate Blood Pressure 173/100 (mmHg) O2 Sat by Pulse 96 Oximetry Oxygen Devices in Use Now: Nasal Cannula Appearance: NAD - tired and somewhat lethargic, but A&Ox3 Ears/Nose/Mouth/Throat: Clear Oropharnyx Neck: Trachea Midline Respiratory: Symmetrical Chest Expansion and Respiratory Effort Cardiovascular: NL Sounds; No Murmurs; No JVD Abdominal: NL Sounds; No Tenderness; No Distention Lymphatic: No Cervical Adenopathy Extremities: No Edema Skin: No Rash or Ulcers Neurological: Alert and Oriented x 3 Lines/Tubes/Other Access: Clean, Dry and Intact Peripheral IV Nutrition: Taking PO's Result Diagrams: 11/03/16 07:26 11/03/16 05:43 Additional Lab and Data: Lab Results 11/02/16 11/02/16 11/02/16 Range/Units 18:50 18:50 18:50 WBC 8.7 (3.5-10.8) 10^3/ul RBC 5.49 H (4.0-5.4) 10^6/ul Hgb 14.9 (14.0-18.0) g/dl Hct 45 (42-52) % MCV 82 (80-94) fL MCH 27 (27-31) pg MCHC 33 (31-36) g/dl RDW 15 (10.5-15) % Plt Count 184 (150-450) 10^3/ul MPV 9 (7.4-10.4) um3 Neut % (Auto) 67.5 (38-83) % Lymph % (Auto) 14.2 L (25-47) % [place] % (Auto) 7.7 (1-9) % Eos % (Auto) 8.3 H (0-6) % Baso % (Auto) 2.3 H (0-2) % Absolute Neuts (auto) 5.9 (1.5-7.7) 10^3/ul Absolute Lymphs (auto) 1.2 (1.0-4.8) 10^3/ul Absolute Monos (auto) 0.7 (0-0.8) 10^3/ul Absolute Eos (auto) 0.7 H (0-0.6) 10^3/ul Absolute Basos (auto) 0.2 (0-0.2) 10^3/ul Absolute Nucleated RBC 0.01 10^3/ul Nucleated RBC % 0.1 ESR 24 H (0-20) mm/Hr Sodium 135 (133-145) mmol/L Potassium 4.0 (3.5-5.0) mmol/L Chloride 103 (101-111) mmol/L Carbon Dioxide 24 (22-32) mmol/L Anion Gap 8 (2-11) mmol/L BUN 27 H (6-24) mg/dL Creatinine 1.87 H (0.67-1.17) mg/dL Est GFR ( Amer) 48.5 (>60) Est GFR (Non-Af Amer) 37.7 (>60) BUN/Creatinine Ratio 14.4 (8-20) Glucose 115 H (70-100) mg/dL Lactic Acid 1.3 (0.5-2.0) mmol/L Calcium 9.0 (8.6-10.3) mg/dL Total Bilirubin 0.80 (0.2-1.0) mg/dL AST 34 (13-39) U/L ALT 24 (7-52) U/L Alkaline Phosphatase 101 (34-104) U/L Total Protein 7.6 (6.4-8.9) g/dL Albumin 3.6 (3.2-5.2) g/dL Globulin 4.0 (2-4) g/dL Albumin/Globulin Ratio 0.9 L (1-3) Assess/Plan/Problems-Billing . Assessment: 56 yo man with CKD and anticoagulation for AF, now with post-traumatic delayed SDH... Sedation observed and confounded by recent admin of Keppra and Opiates. Neurosurgery closely involved. . - Patient Problems (1) Subdural hematoma, post-traumatic Current Visit: Yes Status: Acute Priority: Medium Code(s): S06.5X9A - TRAUM SUBDR HEM W LOC OF UNSP DURATION, INIT Comment: - altered mental status c/w this - appreciate neurosurgery consultation - follow neuro checks, as ordered - BP control, as noted (SBP < 160) - AED - Keppra - as ordered x 7 days (2) Atrial fibrillation Current Visit: No Status: Acute Code(s): I48.91 - UNSPECIFIED ATRIAL FIBRILLATION SNOMED Code(s): 31422154 Comment: - stop anticoagulation given SDH - no ASA at this time either. - rate controlled; BB ok for BP and HR. (3) Ascending aortic aneurysm Current Visit: No Status: Chronic Priority: Medium Code(s): I71.2 - THORACIC AORTIC ANEURYSM, WITHOUT RUPTURE Comment: noted last noted to be 4.9 cm. (4) DVT prophylaxis Current Visit: No Status: Acute Priority: Medium Code(s): TUV4104 - Comment: TEDS/SCD No AC 2/2 SDH (5) CKD (chronic kidney disease) stage 3, GFR 30-59 ml/min Current Visit: Yes Status: Chronic Priority: High Code(s): N18.3 - CHRONIC KIDNEY DISEASE, STAGE 3 (MODERATE) Comment: - noted
[2016-11-03] MEDS ORDERED: Enalaprilat IV* 1.25 MG/ML 2 ML VIAL (2.5 MG) IV ONE (19:37)
[2016-11-03] MEDS: Labetalol TAB* 200 MG PO SCH (21:42)
[2016-11-04] MEDS: hydrALAZINE IV* 20 MG/ML VIAL IV SLOW PU PRN (04:12)
[2016-11-04] MEDS: oxyCODONE TAB* 5 MG TAB PO PRN (04:52)
--- NOTE | 2016-11-04 08:10 | RAD ---
INDICATION: Known right-sided extra-axial fluid collection with new onset left-sided immobility COMPARISON: Multiple previous head CTs, most recently November 03, 2016 at 0950 hours TECHNIQUE: Contiguous axial sections of the brain were obtained from the skull base to the vertex without contrast. FINDINGS: Again seen is a mixed attenuation subdural hematoma external to the right frontal and parietal lobes with a maximum thickness of approximately 1.2 cm. There is approximately 1.2 cm of right to left midline shift, slightly increased from 8 mm on the previous CT examination. No significant focal osseous abnormality is present. The visualized portion of the paranasal sinuses and mastoid air cells appear clear. IMPRESSION: There is been no significant change in the size and mixed attenuation of the right hemisphere subdural hematoma but there has been apparent increase in the degree of right to left subfalcine herniation now measuring 12 mm compared to 8 mm on the previous CT examination. Findings were discussed with Dr. Martinez over the telephone at 0807 hours on November 04, 2016.
--- NOTE | 2016-11-04 08:37 | PN ---
Progress Note - Progress Note Note: headache worse, more sleepy, left weakness, No N & V. No visual changes, No seizure . Objective Vital Signs Temp 98.5 F 11/04/16 03:28 Pulse 72 11/04/16 07:17 Resp 18 11/04/16 07:17 BP 176/93 11/04/16 07:15 Pulse Ox 95 11/04/16 07:17 Intake & Output 11/03/16 11/04/16 11/04/16 19:59 07:59 19:59 Intake Total 800 0 Output Total 0 Balance 800 0 Intake: Oral 800 0 Output: Urine 0 Other: Estimated Void Medium Small # Bowel Movements 1 0 Estimated Stool Amount Small # Voids 1 3 Physical Exam: GEN: No apparent distress Mental Status: sleepy, arousable, Cranial Nerves: PERRL, face symmetric, Motor Exam: left drift, left hospice physician 4/5, right 5/5, move BLE Laboratory Results WBC 9.6 10^3/ul (3.5-10.8) 11/03/16 05:43 RBC 5.27 10^6/ul (4.0-5.4) 11/03/16 05:43 Hgb 14.3 g/dl (14.0-18.0) 11/03/16 05:43 Hct 43 % (42-52) 11/03/16 05:43 MCV 81 fL (80-94) 11/03/16 05:43 MCH 27 pg (27-31) 11/03/16 05:43 MCHC 34 g/dl (31-36) 11/03/16 05:43 RDW 15 % (10.5-15) 11/03/16 05:43 Plt Count 196 10^3/ul (150-450) 11/03/16 07:26 MPV 8 um3 (7.4-10.4) 11/03/16 07:26 Neut % (Auto) 66.2 % (38-83) 11/03/16 05:43 Lymph % (Auto) 14.7 % (25-47) L 11/03/16 05:43 [place] % (Auto) 10.5 % (1-9) H 11/03/16 05:43 Eos % (Auto) 7.4 % (0-6) H 11/03/16 05:43 Baso % (Auto) 1.2 % (0-2) 11/03/16 05:43 Absolute Neuts (auto) 6.3 10^3/ul (1.5-7.7) 11/03/16 05:43 Absolute Lymphs (auto) 1.4 10^3/ul (1.0-4.8) 11/03/16 05:43 Absolute Monos (auto) 1.0 10^3/ul (0-0.8) H 11/03/16 05:43 Absolute Eos (auto) 0.7 10^3/ul (0-0.6) H 11/03/16 05:43 Absolute Basos (auto) 0.1 10^3/ul (0-0.2) 11/03/16 05:43 Absolute Nucleated RBC 0 10^3/ul 11/03/16 05:43 Nucleated RBC % 0 11/03/16 05:43 ESR 24 mm/Hr (0-20) H 11/02/16 18:50 INR (Anticoag Therapy) 1.15 (0.89-1.11) H 11/03/16 05:43 APTT 33.3 seconds (26.0-36.3) 11/03/16 05:43 Sodium 135 mmol/L (133-145) 11/03/16 05:43 Potassium 3.8 mmol/L (3.5-5.0) 11/03/16 05:43 Chloride 104 mmol/L (101-111) 11/03/16 05:43 Carbon Dioxide 25 mmol/L (22-32) 11/03/16 05:43 Anion Gap 6 mmol/L (2-11) 11/03/16 05:43 BUN 26 mg/dL (6-24) H 11/03/16 05:43 Creatinine 1.70 mg/dL (0.67-1.17) H 11/03/16 05:43 Est GFR ( Amer) 54.1 (>60) 11/03/16 05:43 Est GFR (Non-Af Amer) 42.1 (>60) 11/03/16 05:43 BUN/Creatinine Ratio 15.3 (8-20) 11/03/16 05:43 Glucose 100 mg/dL (70-100) 11/03/16 05:43 Lactic Acid 1.3 mmol/L (0.5-2.0) 11/02/16 18:50 Calcium 8.9 mg/dL (8.6-10.3) 11/03/16 05:43 Total Bilirubin 0.80 mg/dL (0.2-1.0) 11/02/16 18:50 AST 34 U/L (13-39) 11/02/16 18:50 ALT 24 U/L (7-52) 11/02/16 18:50 Alkaline Phosphatase 101 U/L (34-104) 11/02/16 18:50 Total Protein 7.6 g/dL (6.4-8.9) 11/02/16 18:50 Albumin 3.6 g/dL (3.2-5.2) 11/02/16 18:50 Globulin 4.0 g/dL (2-4) 11/02/16 18:50 Albumin/Globulin Ratio 0.9 (1-3) L 11/02/16 18:50 Urine Color Straw 11/02/16 21:29 Urine Appearance Clear 11/02/16 21:29 Urine pH 5.0 (5-9) 11/02/16 21:29 Ur Specific [place] 1.010 (1.010-1.030) 11/02/16 21:29 Urine Protein Negative (Negative) 11/02/16 21:29 Urine Ketones Negative (Negative) 11/02/16 21:29 Urine Blood 1+ (Negative) H 11/02/16 21:29 Urine Nitrate Negative (Negative) 11/02/16 21:29 Urine Bilirubin Negative (Negative) 11/02/16 21:29 Urine Urobilinogen Negative (Negative) 11/02/16 21:29 Ur Leukocyte Esterase Negative (Negative) 11/02/16 21:29 Urine WBC (Auto) Trace(0-5/hpf) (Absent) 11/02/16 21:29 Urine RBC (Auto) Trace(0-2/hpf) (Absent) 11/02/16 21:29 Urine Bacteria Absent (Absent) 11/02/16 21:29 Hyaline Casts Present (Absent) H 11/02/16 21:29 Urine Glucose Negative (Negative) 11/02/16 21:29 Salicylates 3.10 mg/dL (<30) 11/02/16 18:50 Blood Type B Positive 11/02/16 18:52 Antibody Screen Negative 11/02/16 18:52 CT Showed worsening right temp frontal acute on subacute SDH 12.5 mm, with edema mass effect and midline shift 12mm, Assess/Plan/Problems-Billing Assessment: 56M, S/P slip and fall about 12 days ago with ASA intake and uncontrol HBP, During the obseration, his CT worsening right temp frontal acute on subacute SDH 12.5 mm, with edema mass effect and midline shift 12mm Plan: Dicussed with family about the right craniotomy / craniectomy for SDH evacuation , they are aware the risks and benefits Continue levetiracetam for 7 days only, Control SBP less [address] Martinez
[2016-11-04] MEDS ORDERED: Diltiazem CD CAP* 240 MG PO SCH (09:00)
[2016-11-04] MEDS ORDERED: Valsartan TAB* 160 MG PO SCH (09:00)
[2016-11-04] MEDS: Labetalol TAB* 200 MG PO SCH ×2 (09:39→15:51)
[2016-11-04] MEDS: levETIRAcetam TAB* 500 MG PO SCH (09:39)
[2016-11-04] MEDS: Furosemide TAB* 20 MG PO SCH (09:39)
[2016-11-04] MEDS ORDERED: Labetalol IV* 5 MG/ML 20 ML VIAL IV PUSH ONE ×2 (09:57→23:00)
[2016-11-04] MEDS ORDERED: Buffered Lidocaine 1% SYR 3ML* 3 ML/SYR SYRINGE ONE (10:33)
[2016-11-04] MEDS ORDERED: ceFAZolin 2 GM PREMIX (*) 2 GM/50 ML BAG IVPB ONE (10:43)
[2016-11-04 11:23] LABS: Albumin 3.5 g/dL (3.2-5.2); BUN/Creatinine Ratio 19.5 (8-20); Calcium 9.2 mg/dL (8.6-10.3); EGFR African American 56.4 (>60); EGFR Non-African American 43.8 (>60); Globulin 3.7 g/dL (2-4); Phosphorus 3.5 mg/dL (2.5-5.0); Total Bilirubin 1.1 mg/dL (0.2-1.0); Total Protein 7.2 g/dL (6.4-8.9)
[2016-11-04 11:26] LABS: Potassium 4.6 mmol/L (3.5-5.0)
--- NOTE | 2016-11-04 11:47 | PN ---
Subjective Date of Service: 11/04/16 Interval History: . Symptom progression overnight --> left arm numbness and decreased alertness -- worse than earlier. Stat head CT --> showed worsening midline shift secondary to cerebral edema. Neurosurgery notified promptly and decision made (family agreed) for surgery to evacuate hematoma this AM. I briefly spoke with patient's at bedside - tearful - has already spoken with neurosurgery and understands need for surgery given mass effect. Several beats of NSVT noted - stat electrolytes ordered that did not show derangement. Likely HTN effect --> IV labetalol ordered with documented decrease in BP. Will stay in ICU post op for HTN management and guest relations representative consultation requested. . Family History: Unchanged from Admission Social History: Unchanged from Admission Past Medical History: Unchanged from Admission Objective Active Medications: . Acetaminophen (Tylenol Tab*) 650 mg PO Q4H PRN PRN Reason: FEVER/PAIN Diltiazem HCl (Cardizem Cd Cap*) 240 mg PO DAILY [facility] Last Admin: 11/04/16 09:39 Dose: Not Given Docusate Sodium (Colace Cap*) 100 mg PO BID PRN PRN Reason: CONSTIPATION Furosemide (Lasix Tab*) 20 mg PO DAILY [facility] Last Admin: 11/04/16 09:39 Dose: Not Given Hydralazine HCl (Apresoline Iv*) 5 mg IV SLOW PU Q6H PRN PRN Reason: BLOOD PRESSURE Last Admin: 11/04/16 04:12 Dose: 5 mg Labetalol HCl (Trandate Tab*) 400 mg PO TID [facility] Last Admin: 11/04/16 09:39 Dose: Not Given Levetiracetam (Keppra Tab*) 750 mg PO BID [facility] Last Admin: 11/04/16 09:39 Dose: Not Given Morphine Sulfate (Morphine Inj (Syringe)*) 2 mg IV Q4H PRN PRN Reason: PAIN Last Admin: 11/03/16 04:43 Dose: 2 mg Ondansetron HCl (Zofran Inj*) 4 mg IV Q4H PRN PRN Reason: NAUSEA/VOMITING Oxycodone HCl (Roxycodone Tab*) 5 mg PO Q4H PRN PRN Reason: PAIN Last Admin: 11/04/16 04:52 Dose: 5 mg Senna (Senokot Tab*) 1 tab PO BID PRN PRN Reason: CONSTIPATION Valsartan (Diovan Tab*) 320 mg PO DAILY [facility] Last Admin: 11/04/16 09:39 Dose: Not Given . Vital Signs 11/03/16 11/03/16 11/03/16 12:44 13:21 14:38 Temperature Pulse Rate 63 81 Respiratory 18 Rate Blood Pressure 163/102 153/106 (mmHg) O2 Sat by Pulse Oximetry 11/03/16 11/03/16 11/03/16 16:04 17:57 19:21 Temperature 98.3 F Pulse Rate 79 80 77 Respiratory 16 Rate Blood Pressure 190/97 186/91 (mmHg) O2 Sat by Pulse 93 96 Oximetry 24 hour review completed...above is sample. Oxygen Devices in Use Now: Nasal Cannula Appearance: obtunded Eyes: No Scleral Icterus Ears/Nose/Mouth/Throat: NL Teeth, Lips, Gums Neck: Trachea Midline Respiratory: Symmetrical Chest Expansion and Respiratory Effort Cardiovascular: NL Sounds; No Murmurs; No JVD Abdominal: NL Sounds; No Tenderness; No Distention, - - soft, NT Lymphatic: No Cervical Adenopathy Extremities: No Edema Skin: No Rash or Ulcers Neurological: - - unable to assess secodnary to current level of consciousness Lines/Tubes/Other Access: Clean, Dry and Intact Peripheral IV Nutrition: - - currently NPO Result Diagrams: 11/04/16 14:50 11/04/16 14:50 Additional Lab and Data: . Assess/Plan/Problems-Billing . Assessment: 56 yo man with CKD and anticoagulation for AF, now with post-traumatic delayed SDH... Stat Head CT this AM shows worsening midline shift/herniation secondary to cerebral edema. Urgent neurosurgery scheduled for this AM. - Patient Problems (1) Subdural hematoma, post-traumatic Current Visit: Yes Status: Acute Priority: Medium Code(s): S06.5X9A - TRAUM SUBDR HEM W LOC OF UNSP DURATION, INIT Comment: - altered mental status progressed with left sided numbness - Stat Brain CT showed cerebral edema with lateral herniation/mass effect. - Urgent neurosurgery planned - AED - Keppra - as ordered x 7 days - BP control ongoing. - ICU care post-op with guest relations representative consult for labile HTN & management - (2) Atrial fibrillation Current Visit: No Status: Acute Code(s): I48.91 - UNSPECIFIED ATRIAL FIBRILLATION SNOMED Code(s): 33767962 Comment: - No anticoagulation given SDH - no ASA at this time either. - rate controlled; BB ok for BP and HR. - restart (substantial) home BP meds as soon as able. (3) Ascending aortic aneurysm Current Visit: No Status: Chronic Priority: Medium Code(s): I71.2 - THORACIC AORTIC ANEURYSM, WITHOUT RUPTURE Comment: noted last noted to be 4.9 cm. (4) DVT prophylaxis Current Visit: No Status: Acute Priority: Medium Code(s): MJC1423 - Comment: TEDS/SCD No AC 2/2 SDH (5) CKD (chronic kidney disease) stage 3, GFR 30-59 ml/min Current Visit: Yes Status: Chronic Priority: High Code(s): N18.3 - CHRONIC KIDNEY DISEASE, STAGE 3 (MODERATE) Comment: - noted
[2016-11-04] MEDS ORDERED: Succinylcholine* 20 MG/ML 10 ML VIAL ONE (11:49)
[2016-11-04] MEDS ORDERED: Lidocaine 2% MPF* 2 ML VIAL ONE ×3 (11:49→13:28)
[2016-11-04] MEDS ORDERED: Propofol* 10 MG/ML 20 ML BTL IV PUSH ONE (11:49)
[2016-11-04] MEDS ORDERED: Thrombin 5,000 UNITS* 1 APPLIC KIT - topical use - TOPICAL ONE (11:51)
[2016-11-04] MEDS ORDERED: Collagen Hemostat* 1 SPONGE/70Mm X 35Mm ONE (11:51)
[2016-11-04] MEDS ORDERED: Collagen Hemostat* 1 GM JAR ONE (11:51)
[2016-11-04] MEDS ORDERED: Bacitracin OINTMENT* 0.5% 0.5 oz TUBE ONE (11:51)
[2016-11-04] MEDS ORDERED: Lidocain 1% EPI 1:100,000 * 30 ML MDV ONE (12:16)
[2016-11-04] MEDS ORDERED: Bacitracin IV* 50,000 UNITS INJ ONE ×2 (12:26→12:57)
[2016-11-04] MEDS ORDERED: Dexamethasone IV* 4 MG/ML 1 ML (4 MG) ONE (12:51)
[2016-11-04] MEDS ORDERED: Esmolol* 10 MG/ML 10 ML (100 mg) ONE (12:51)
[2016-11-04] MEDS ORDERED: Phenylephrine IV* 40 MCG/ML 10 ML SYRINGE ONE (13:05)
[2016-11-04] MEDS ORDERED: Labetalol IV* 5 MG/ML 20 ML VIAL ONE ×2 (14:01→21:45)
[2016-11-04] MEDS ORDERED: Labetalol IV* 5 MG/ML 20 ML VIAL IV PUSH PRN (14:05)
[2016-11-04] MEDS ORDERED: Metoclopramide IV* 5 MG/ML 2 ML VIAL IV SLOW PU ONE (14:12)
[2016-11-04] MEDS ORDERED: Metoclopramide IV* 5 MG/ML 2 ML VIAL ONE (14:13)
[2016-11-04] MEDS ORDERED: NS 0.9% 1000 ML* 2,000 ML IV SCH ×2 (14:45→16:54)
[2016-11-04 14:58] LABS: Hematocrit 44 % (42-52); Hemoglobin 14.3 g/dl (14.0-18.0); Mean Corpuscular HGB Conc 33 g/dl (31-36); Mean Corpuscular Hemoglobin 27 pg (27-31); Mean Corpuscular Volume 82 fL (80-94); Mean Platelet Volume 8 um3 (7.4-10.4); Red Blood Count 5.31 10^6/ul (4.0-5.4); Red Cell Distribution Width 14 % (10.5-15); White Blood Count 9.8 10^3/ul (3.5-10.8)
[2016-11-04] MEDS ORDERED: nitroGLYCERIN DRIP* 25,000 MCG in PREMIX* 0 ML IV SCH (15:00)
[2016-11-04 15:12] LABS: BUN/Creatinine Ratio 18.5 (8-20); Calcium 9.2 mg/dL (8.6-10.3); EGFR African American 51.3 (>60); EGFR Non-African American 39.9 (>60); Potassium 4.5 mmol/L (3.5-5.0)
--- NOTE | 2016-11-04 15:30 | SURGPN ---
Brief Operative Note - Surgery Procedures: Procedures SURGEON: Lee Cardona MD , PhD CO-SURGEON: REGULATORY AFFAIRS ASSISTANT: PRE-OPERATIVE DIAGNOSIS: Right Subdural Hematoma with mass effect and midline shift POST-OPERATIVE DIAGNOSIS: Right Subdural Hematoma with mass effect and midline shift PROCEDURE(S) PERFORMED: 1.Right Craiotomy for Subdural Hematoma evacuation DRAINS: SCOTTIE ANESTHESIA TYPE: General Endotracheal Anesthesia and Local Anesthesia ESTIMATED BLOOD LOSS: 20 ml COMPLICATIONS: None. Please refer OR dictation for detail
[2016-11-04] MEDS: levETIRAcetam IV* 1,000 MG in NS 0.9% 100 ML* 100 ML IVPB SCH (16:05)
[2016-11-04] MEDS ORDERED: LORazepam INJ* 2 MG/ML 1 ML VIAL ONE (16:41)
[2016-11-04] MEDS ORDERED: Sodium Chloride 3% HYPERTONIC* 500 ML IVPB ONE (16:54)
[2016-11-04] MEDS: ceFAZolin 1 GM in Dextrose (*) 1 GM/50 ML BAG IVPB SCH ×2 (16:54→23:39)
[2016-11-04] MEDS ORDERED: Esmolol 10 MG/ML IVPREMIX* 2,500 MG/250 ML BAG IVPB SCH (17:00)
[2016-11-04] MEDS: Metoclopramide IV* 5 MG/ML 2 ML VIAL IV SLOW PU SCH ×2 (17:36→22:59)
[2016-11-04] MEDS: LORazepam INJ* 2 MG/ML 1 ML VIAL IV PUSH PRN ×3 (17:38→23:41)
[2016-11-04] MEDS ORDERED: fentaNYL* 50 MCG/ML 2 ML VIAL (100 MCG VIAL) ONE (18:05)
--- NOTE | 2016-11-04 18:43 | RAD ---
Indication: Follow-up subdural hematoma evacuation. Comparison: November 04, 2016 0643 hours. Technique: Noncontrast CT vertex of skull through foramen magnum. Report: Post RIGHT parietal craniotomy. Surgical drain in place in the RIGHT subdural space. Associated gas in the subdural space and subcutaneous scalp emphysema. Significant interval decrease in volume of RIGHT hemispheric subdural hematoma now measuring 4 mm or less transverse thickness compared with up to 1.2 cm previously. No new extra or intra-axial hematoma evident. Persistent RIGHT hemispheric sulcal effacement. 0.5 cm leftward midline shift at the level of the septum lucidum decreased from 1.2 cm on the prior exam. Decreased magnitude of compression of the RIGHT lateral ventricle. Patent basal cisterns. IMPRESSION: Significant interval decrease in mass effect post drainage of the RIGHT subdural hematoma. Up to 0.5 cm persistent leftward shift at the level of the septum pellucidum decreased from 1.2 cm previously. No new extra or intra-axial hematoma evident.
--- NOTE | 2016-11-04 19:58 | PN ---
Progress Note - Progress Note Note: Received call from Nurse at approximately 6:15 AM that patient was having trouble moving his left side which was new. Also more lethargic. Upon immediate evaluation the patient was able to move his left side but was lethargic. He had also just received narcotics. CT scan of head was ordered stat.
--- NOTE | 2016-11-04 20:47 | CONS ---
CRITICAL CARE CONSULT: DATE OF CONSULT: 11/04/16 REASON FOR CONSULTATION: Postop management. HISTORY OF PRESENT ILLNESS: This is a 56-year-old white male, who was admitted on 11/02/16 with a subdural hematoma, which increased in size and was evacuated surgically earlier today. The patient has a history of poorly-controlled hypertension and in the recovery room, blood pressure increased to 190 systolic , requiring intravenous nitroglycerin for blood pressure control. The patient was subsequently brought to the intensive care unit for continued management of blood pressure. PHYSICAL EXAM: On admission to the intensive care unit, temp was 98.6, blood pressure 130/74, pulse rate 77, respirations 16, O2 sat 92% on nasal prongs. The patient was breathing spontaneously without ventilatory assistance and mental status was depressed and occasionally agitated. HEENT: Pupils were in mid position and sluggishly reactive. Corneas were intact and there was no facial asymmetry. Neck: Supple. Lungs: Clear to auscultation. Cardiac Exam : 2/6 early systolic murmur heard throughout the precordium. Abdomen was soft. Extremities were warm, not cyanotic, and not edematous. Neurologic Exam: The patient moved all extremities, right side greater than the left and was intermittently awake, but confused when awake. DIAGNOSTIC STUDIES/LAB DATA: Hemoglobin 14.3, white count 9.8, platelets 192, 000. Sodium 135, potassium 4.5, chloride 106, carbon dioxide 24, BUN 33, creatinine 1.78, glucose 127, magnesium 2, albumin 3.5. CT scan earlier today showed a subdural hematoma external to the right frontal and parietal lobes with a maximum thickness of 1.2 cm and a slight right to left midline shift. IMPRESSION: Stable postoperatively. PLAN: 1. Switch from nitroglycerin to esmolol for blood pressure control because of cerebral edema, which could be exacerbated by nitroglycerin. 2. Start 3% hypertonic saline for the cerebral edema and infuses until the serum sodium increases to 145 mEq/L. 3. Follow with serial CT scans. 4. Remainder of management will involve general supportive care. I have discussed the postoperative management with Neurosurgery service, and with the patient's family. CRITICAL CARE TIME: 55 minutes. [id number]/[facility] #: [id number] MTDD
[2016-11-04] MEDS: Morphine INJ* 2 MG/ML 1 ML CARPUJECT IV PRN (20:58)
[2016-11-04] MEDS ORDERED: nitroGLYCERIN DRIP* 250 ML ONE (22:43)
[2016-11-04] MEDS: nitroGLYCERIN DRIP* 25,000 MCG in PREMIX* 0 ML IV SCH (22:45)
[2016-11-04] MEDS ORDERED: Labetalol IV* 200 MG in NS 0.9% 250 ML* 160 ML IVPB ONE (23:00)
[2016-11-05] MEDS: levETIRAcetam IV* 1,000 MG in NS 0.9% 100 ML* 100 ML IVPB SCH ×2 (01:36→15:42)
[2016-11-05] MEDS: LORazepam INJ* 2 MG/ML 1 ML VIAL IV PUSH PRN ×4 (01:37→23:35)
[2016-11-05 01:40] LABS: Calcium 8.7 mg/dL (8.6-10.3); EGFR African American 50.3 (>60); EGFR Non-African American 39.1 (>60); Potassium 4.4 mmol/L (3.5-5.0)
[2016-11-05] MEDS: Metoclopramide IV* 5 MG/ML 2 ML VIAL IV SLOW PU SCH ×4 (02:36→20:57)
[2016-11-05 06:00] LABS: BUN/Creatinine Ratio 21.4 (8-20); Calcium 8.6 mg/dL (8.6-10.3); EGFR African American 48.5 (>60); EGFR Non-African American 37.7 (>60); Potassium 4.4 mmol/L (3.5-5.0)
[2016-11-05] MEDS: ceFAZolin 1 GM in Dextrose (*) 1 GM/50 ML BAG IVPB SCH ×3 (06:12→22:51)
[2016-11-05] MEDS: Morphine INJ* 2 MG/ML 1 ML CARPUJECT IV PRN ×4 (08:00→21:51)
--- NOTE | 2016-11-05 08:15 | PN ---
Progress Note - Progress Note Note: Critical Care Progress Note Intermittent restless activity in bed Several different approaches to BP control tried over coarse of evening/night including NTG, Esmolol, and Labetolol.....currently on IN NTG SBP 140-160 HR 102 RR 26 Temp 99.3 SpO2 97 (RA) Skin no diaphoresis Kerlix wrap about head Oral mucosa pink Lungs with bilateral BS, good air entry throughout, no wheezes Cor RRR S1 and S2 normal, no rub, 1/6 systolic murmur Abd soft, nontender Ext no edema, (+)SCDs Bilateral hand PIV K 4.4 BUN/Creat 40/1.87 Na 138 IMP: Traumatic SDH s/p evacuation CKD 3 Chronic HTN Intermittent agitation/restlessness Hx Aortic Aneurysm..Annular Aortic Ectasia previously documented Chronic A Fib Episodic VT while in house per notes I have seen in chart Murmur...perhaps related to above annular aortic ectasia vs MR PLAN/REC: Continue efforts to keep reasonable control of BP ...will discuss issue of Procardia "allergy" as report is that it caused stomach upset which would not represent a true allergy to either the drug or drug class ...to consider regular regimen of B-brigitte given added history of aortic aneurysm in conjunction with a vasodilatory medication Keep HOB raised Mech DVT prophyl Efforts to orient when awake Analgesia PRN ECHO Discussed with Nurse
--- NOTE | 2016-11-05 08:42 | OP ---
DATE OF OPERATION: 11/04/16 - ROOM #ICU-07 DATE OF : 62 SURGEON: Lee Cardona MD ANESTHESIOLOGIST: Chuy Reza MD ANESTHESIA: General endotracheal. PRE-OP DIAGNOSES: 1. Subacute subdural hematoma. 2. Mass effect with midline shift. POST-OP DIAGNOSES: 1. Subacute subdural hematoma. 2. Mass effect with midline shift. OPERATIVE PROCEDURE: Right-sided craniotomy for subacute hematoma evacuation with subdural drainage placement. COMPLICATIONS: None. DRAIN: SCOTTIE x1. ESTIMATED BLOOD LOSS: 20 mL. INDICATIONS: This is a 56-year-old gentleman with history of atrial fibrillation, aortic aneurysm, chronic renal failure. The patient slipped and fell about 10 days ago, hit the head, and his headache has been getting progressively worsening since Friday. He took aspirin and ibuprofen for pain control; however, his headache has been getting significantly worse and admitted to the hospital 3 days ago. During observation, his headache was getting more worse. He became more somatic, difficult to arouse. He also had episodes of left-sided weakness. CT scan showed increased subacute subdural hematoma with a mass effect and a midline shift to 12 mm, so we discussed the risks and benefits of the surgery with the patient and the patient's family, the risks including not limited to re-hemorrhage, edema, midline shift, need for further evacuation surgery, stroke, seizure, neurologic deficits, weakness, numbness, tingling, memory decreased, personality change, infection, meningitis , anesthesia side effects, DVT and PE, myocardial infarction, coma, or even . He understood the risks, accepted the risks, strongly requested surgery to be performed, and signed the consent form. DESCRIPTION OF PROCEDURE: The patient was properly identified and brought to the OR, placed on the OR table in supine position. General endotracheal anesthesia was placed by anesthesia team without any difficulty. Intravenous line was placed. The patient was positioned with head turned to the left side, so the right side temporoparietal area was facing to the ceiling, secured with a head holding device. His right side temporal area was shaved, prepped and draped in usual neurosurgery standard fashion. Time-out was performed with anesthesia, attending did confirm correct information, procedure in detail, antibiotic administration and imaging study. Everyone agreed with the above procedure. A curvilinear incision was made around the right side of temporal area above the ear. After local anesthesia infiltration, incision carried down through the subcutaneous and the temporal muscle area. Self-retaining retractor was opened to hold the incision. We made a small brayan hole and this further connected by side cutter to make a right-sided small craniotomy. Bone was removed. Dura was found intact with tension underneath. We made a linear incision around the dura and liquiform subdural hematoma was flushed out, indicating high pressure underneath. We then opened the dura in cross-cushion fashion and further we took about 4-0 Nurolon stitches. We then found underneath liquiform and clot subdural hematoma. We utilized irrigation to irrigate underneath the subdural space, subdural hematoma was evacuated. We also used gentle suction to remove solid clots with cottonoids protect the brain surface. We cleaned the subdural hematoma circumferentially until there was no further hematoma via drainage. A #7 round- shaped SCOTTIE was placed above the brain surface into the subdural space posterior to the scalp, and subdural bone flap was then placed back to the original site and further secured with a Synthes maxillofacial fixation system. Large irrigation to irrigate the surgical area hemostasis was obtained. We closed the scalp using 2-0 Vicryl suture in inverted and interrupted fashion. We closed the skin using continuing running 3-0 Monocryl. The drain was further secured with 3-0 Monocryl. Sterile dressing was applied. The patient was then flipped and turned to the supine position, extubated without any difficulty, and then transferred to the recovery room in stable condition. All counts were count. The patient tolerated the procedure well, no complications. I was present and performed every critical portion of the whole procedure. [id number]/[facility] #: [id number] [facility]ICAL CENTERMary
[2016-11-05] MEDS: Furosemide TAB* 20 MG PO SCH (08:47)
[2016-11-05] MEDS: Metoprolol Tartrate IV* 1 MG/ML 5 ML VIAL IV SCH ×4 (09:27→20:57)
--- NOTE | 2016-11-05 10:48 | RAD ---
HISTORY: Follow-up subdural hematoma COMPARISONS: November 04, 2016 at 5:54 PM, November 02, 2016 TECHNIQUE: Multiple contiguous axial CT scans were obtained of the head without intravenous contrast. FINDINGS: The study is limited by patient motion artifact. HEMORRHAGE/INFARCT: There is no parenchymal hemorrhage or acute infarct. MASSES/SHIFT: There is no mass or shift. EXTRA-AXIAL SPACES: There is pneumocephalus with a subdural drain. There is no appreciable residual subdural hematoma. SULCI AND VENTRICLES: The sulci and ventricles are normal in size and position for the patient's stated age. CEREBRUM: There are no focal parenchymal abnormalities. BRAINSTEM: There are no focal parenchymal abnormalities. CEREBELLUM: There are no focal parenchymal abnormalities. VESSELS: The vessels are grossly normal. PARANASAL SINUSES: The paranasal sinuses are clear. ORBITS: The orbits are unremarkable. BONES AND SOFT TISSUE: There is post surgical change to the skull OTHER: None IMPRESSION: STATUS POST DRAINAGE OF SUBDURAL HEMATOMA, WITHOUT APPRECIABLE RESIDUAL. THERE IS PNEUMOCEPHALUS
[2016-11-05] MEDS: nitroGLYCERIN DRIP* 25,000 MCG in PREMIX* 0 ML IV SCH (11:07)
[2016-11-05] MEDS: niCARdipine 0.1MG/ML IVPREMIX* 20 MG/200 ML BAG IV SCH ×4 (12:33→23:43)
--- NOTE | 2016-11-05 15:10 | PN ---
Progress Note - Progress Note SOAP: Subjective: []POD # 1 Agitated, keeps eyes closed responds with moans to painful stimulus Objective: []F/U CT essentially unchanged,still mild shift ,right cerebral swelling Moves all ext to pain,localizes Pupils equal, reactive Assessment: []Stable post op Plan: []Continue sedation as required Discussed probable prolonged recovery with this am
[2016-11-05] MEDS: Dexmedetomidine* 50 ML IVPB SCH ×2 (15:42→17:51)
--- NOTE | 2016-11-05 16:13 | ECHO ---
Patient: JOLANTA DURBIN [facility] Rec#: [id number] : 1960 Date: 11/05/2016 Age: 56y Height: 187.96 cm / 74.0 in Weight: 116.57 kg / 256.9 lbs Sex: M BSA: 2.42 Room#: [facility] Admit Date#: 11/02/2016 Type: Inpatient Referring: Deandre Schuler MD Reading: Hung Rush MD Mail Processor: Kaylene Hawk BRENTON CC: Bruce Browning MD Transthoracic Echocardiogram Indication: Murmur BP: 161/103 HR: 98 Rhythm: A-Fib Findings History: Subdural hematoma s/p a fall, s/p carniotomy and evacuation of hematoma 11/04/16. CKD,a-fib,HTN,pericardial window in the past,documented aortic ectasia. Technical Comments: The study is technically limited due to patient body habitus. Completed at 1310. Left Ventricle: The left ventricular chamber size is normal. Severe concentric left ventricular hypertrophy is observed.There is relative prominence of the septum without significant gradient. The estimated ejection fraction is 60-65%. The assessment of diastolic function is non-diagnostic. Left Atrium: The left atrium is severely dilated. Right Ventricle: The right ventricular cavity size is normal. The right ventricular global systolic function is normal. Right Atrium: The right atrium is moderate to severely dilated. Aortic Valve: The aortic valve is trileaflet. There is mild aortic regurgitation. There is no evidence of aortic stenosis. Mitral Valve: There is mitral annular calcification. The mitral valve leaflets are mildly thickened. There is mild mitral regurgitation. There is no evidence of mitral stenosis. Tricuspid Valve: The tricuspid valve leaflets are normal. There is mild tricuspid regurgitation. There is evidence of mild pulmonary hypertension. There is no tricuspid stenosis. Pulmonic Valve: The pulmonic valve appears normal. There is mild pulmonic regurgitation. There is no pulmonic stenosis. Pericardium: The pericardium appears normal. Aorta: There is moderate dilatation of the ascending aorta. There is no dilatation of the aortic arch. There is moderate dilatation of the aortic root. Pulmonary Artery: The main pulmonary artery appears normal. Venous: The inferior vena cava is dilated. There is an approximate 50% respiratory change in the inferior vena cava dimension. Conclusions Severe concentric left ventricular hypertrophy is observed. There is relative prominence of the septum without significant gradient. The estimated ejection fraction is 60-65%. The assessment of diastolic function is non-diagnostic. The left atrium is severely dilated. There is mild aortic regurgitation. There is mild mitral regurgitation. There is mild tricuspid regurgitation. There is mild pulmonic regurgitation. The patient appears to be in atrial fibrillation throughout the study. Compared to report of study from 05/08/2015 there does not appears to be signifcant change. Measurements Name Value Normal Range RVIDd (AP) 2D 3.4 cm (0.9 - 2.6) RVDdMajor (2D) 3.9 cm (2.2 - 4.4) RAd ISD 4CH 7.7 cm (3.4 - 4.9) RA (A4C)W 5.9 cm (2.9 - 4.6) IVSd (2D) 2.7 cm (0.6 - 1) LVPWd (2D) 2.1 cm (0.6 - 1) LVIDd (2D) 3.6 cm (3.6 - 5.4) LVIDs (2D) 2.7 cm - LV FS (2D) 26 % (25 - 45) Aortic Annulus 2.7 cm (1.4 - 2.6) Ao root diameter (2D) 4.4 cm (2.1 - 3.5) Ascending Ao 4.6 cm (2.1 - 3.4) Aortic arch 2.5 cm (1.8 - 3.4) Descending Ao 0.4 cm - LA dimension (AP) 2D 5.4 cm (2.3 - 3.8) LAd ISD 4CH 7.4 cm (2.9 - 5.3) LA ISD 4CH W 5.5 cm (2.5 - 4.5) Name Value Normal Range LA ESV SP 4CH (A/L) 104 ml - LA ESV SP 2CH (A/L) 88 ml - LA ESV BP (A/L) 96 ml - LA ESV BP (A/L) index 39.5 ml/m2 - LA ESV SP 4CH (MOD) 96 ml - LA ESV SP 2CH (MOD) 91 ml - Name Value Normal Range MV E-wave Vmax 1.5 m/sec - MV deceleration time 156 msec - LV septal e' Vmax 0.05 m/sec - LV lateral e' Vmax 0.08 m/sec - LV E:e' septal ratio 30 ratio - LV E:e' lateral ratio 22.5 ratio - Name Value Normal Range AV Vmax 1.2 m/sec - AV VTI 22.5 cm - AV peak gradient 6.11 mmHg - AV mean gradient 3.24 mmHg - LVOT Vmax 0.9 m/sec - LVOT VTI 15.6 cm - LVOT peak gradient 3.07 mmHg - LVOT mean gradient 1.5 mmHg - AR PHT 540 msec - AR peak gradient 104 mmHg - Name Value Normal Range TR Vmax 3.1 m/sec - TR peak gradient 38 mmHg - RAP 8 mmHg - RVSP 46 mmHg - IVC diameter 2.5 cm - Name Value Normal Range PV Vmax 0.7 m/sec - PV peak gradient 1.83 mmHg -
[2016-11-06] MEDS: Dexmedetomidine* 50 ML IVPB SCH ×5 (00:34→22:34)
[2016-11-06] MEDS: Metoprolol Tartrate IV* 1 MG/ML 5 ML VIAL IV SCH ×6 (00:39→21:24)
[2016-11-06] MEDS: Morphine INJ* 2 MG/ML 1 ML CARPUJECT IV PRN ×6 (00:51→23:28)
[2016-11-06] MEDS: levETIRAcetam IV* 1,000 MG in NS 0.9% 100 ML* 100 ML IVPB SCH (02:12)
[2016-11-06] MEDS: LORazepam INJ* 2 MG/ML 1 ML VIAL IV PUSH PRN (02:50)
[2016-11-06] MEDS: Metoclopramide IV* 5 MG/ML 2 ML VIAL IV SLOW PU SCH ×2 (03:25→08:40)
[2016-11-06] MEDS: niCARdipine 0.1MG/ML IVPREMIX* 20 MG/200 ML BAG IV SCH ×8 (03:32→23:30)
[2016-11-06 06:10] LABS: Hematocrit 42 % (42-52); Hemoglobin 13.7 g/dl (14.0-18.0); Mean Corpuscular HGB Conc 33 g/dl (31-36); Mean Corpuscular Hemoglobin 27 pg (27-31); Mean Corpuscular Volume 82 fL (80-94); Mean Platelet Volume 8 um3 (7.4-10.4); Red Blood Count 5.06 10^6/ul (4.0-5.4); Red Cell Distribution Width 14 % (10.5-15); White Blood Count 10.9 10^3/ul (3.5-10.8)
[2016-11-06 06:24] LABS: BUN/Creatinine Ratio 25.3 (8-20); Calcium 8.8 mg/dL (8.6-10.3); EGFR African American 58.9 (>60); EGFR Non-African American 45.8 (>60); Magnesium 2.3 mg/dL (1.9-2.7); Phosphorus 3.6 mg/dL (2.5-5.0); Potassium 4.4 mmol/L (3.5-5.0)
[2016-11-06] MEDS: ceFAZolin 1 GM in Dextrose (*) 1 GM/50 ML BAG IVPB SCH (06:34)
--- NOTE | 2016-11-06 07:53 | PN ---
Progress Note - Progress Note SOAP: Subjective: []Remains confused,agitated Non verbal On sedation Minimal drain output Objective: []Wound OK Drain removed Moves all extremities vigorously Assessment: []Remains stable Plan: []Continue present course Repeat CT in AM
--- NOTE | 2016-11-06 08:51 | PN ---
Progress Note - Progress Note Note: Critical Care Progress Note Precedex increased overnight due to agitation Presently sedate/adynamic Nurse reports needing to suction for a fair volume of secretions as cough not effective re clearing out phlegm Remains on Cardene gtt SBP 140-160's HR 93 RR 25 Temp 100.1 SpO2 95 (NC) UO ~1875 ml Skin no diaphoresis Kerlix wrap about head with SCOTTIE drain emanating underneath Pupils equal Oral mucosa pink Lungs with bilateral BS, good air entry throughout, no wheezes Cor RRR S1 and S2 normal, no rub, 2/6 blowing systolic murmur best heard at apex Abd soft, nontender schwab Ext no edema, (+)SCDs Bilateral hand PIV WBC 10.9 Hgb 13.7 Plt 159 K 4.4 BUN/Creat 40/1.58 Mg 2.3 Pi 3.6 IMP: Traumatic SDH s/p evacuation CKD 3...creatinine better Chronic HTN Intermittent agitation/restlessness Hx Aortic Aneurysm..Annular Aortic Ectasia previously documented Chronic A Fib Episodic VT earlier in course Low grade temperature elevation PLAN/REC: Continue efforts to keep reasonable control of BP...utilizing combination of Lopressor and Cardene gtt Try to wean down Precedex gtt to point where patient can be more aware of his surroundings and more effectively clear his secretions To consider small doses Haldol To obtain a CXR and UA today Keep HOB raised Mech DVT prophyl Efforts to orient when awake Analgesia PRN Discussed with bedside Nurse and the rest of the [facility] team this AM
--- NOTE | 2016-11-06 08:54 | RAD ---
INDICATION: Fever and congestion COMPARISON: Chest x-ray dated May 07, 2015 TECHNIQUE: Single AP portable view of the chest was obtained. FINDINGS: Image quality is compromised due to the relative inferiority of a portable chest x-ray. Similar the previous chest x-ray there is mild cardiomegaly. The heart and mediastinum are otherwise normal in contour. The pulmonary vasculature appears mildly engorged and indistinct relative to the previous chest x-ray. There are no lobar consolidations or suspicious pulmonary nodules.. There is no evidence of a large pleural effusion. Visualized bones are normal for the patient's age. IMPRESSION: In the correct clinical setting chest x-ray findings could be compatible with cardiogenic pulmonary edema.
[2016-11-06 12:52] LABS: Urine Bacteria Absent (Absent); Urine Bilirubin Negative (Negative); Urine Glucose Negative (Negative); Urine Nitrite Negative (Negative)
[2016-11-06] MEDS: Haloperidol INJ IV/IM* 5 MG/ML AMP IV SLOW PU SCH ×2 (14:44→21:24)
[2016-11-07] MEDS: Metoprolol Tartrate IV* 1 MG/ML 5 ML VIAL IV SCH ×6 (01:06→21:56)
[2016-11-07] MEDS: niCARdipine 0.1MG/ML IVPREMIX* 20 MG/200 ML BAG IV SCH ×13 (01:28→23:57)
[2016-11-07] MEDS: LORazepam INJ* 2 MG/ML 1 ML VIAL IV PUSH PRN ×6 (02:38→23:06)
[2016-11-07] MEDS: Morphine INJ* 2 MG/ML 1 ML CARPUJECT IV PRN ×3 (02:56→21:57)
[2016-11-07] MEDS: Dexmedetomidine* 50 ML IVPB SCH ×4 (03:25→21:50)
[2016-11-07 04:26] LABS: Hematocrit 41 % (42-52); Hemoglobin 13.4 g/dl (14.0-18.0); Mean Corpuscular HGB Conc 33 g/dl (31-36); Mean Corpuscular Hemoglobin 27 pg (27-31); Mean Corpuscular Volume 83 fL (80-94); Mean Platelet Volume 9 um3 (7.4-10.4); Red Blood Count 4.91 10^6/ul (4.0-5.4); Red Cell Distribution Width 14 % (10.5-15); White Blood Count 10.5 10^3/ul (3.5-10.8)
[2016-11-07 04:36] LABS: BUN/Creatinine Ratio 28.8 (8-20); Calcium 8.9 mg/dL (8.6-10.3); EGFR African American 61.1 (>60); EGFR Non-African American 47.5 (>60); Magnesium 2.6 mg/dL (1.9-2.7); Potassium 4.2 mmol/L (3.5-5.0)
[2016-11-07] MEDS ORDERED: Morphine INJ* 2 MG/ML 1 ML CARPUJECT IV ONE (05:00)
[2016-11-07] MEDS: Haloperidol INJ IV/IM* 5 MG/ML AMP IV SLOW PU SCH ×5 (05:24→19:55)
--- NOTE | 2016-11-07 07:48 | RAD ---
HISTORY: Follow-up subdural COMPARISONS: November 05, 2016 TECHNIQUE: Multiple contiguous axial CT scans were obtained of the head without intravenous contrast. Coronal reformations are also slightly for review. FINDINGS: HEMORRHAGE/INFARCT: There is no acute parenchymal hemorrhage. There is no acute infarct. MASSES/SHIFT: There is minimal subfalcine shift to the left approximate 0.5 cm. There is no mass. EXTRA-AXIAL SPACES: There is been interval removal of a subdural drainage catheter. There is a small amount of pneumocephalus with small amount of subacute to chronic subdural fluid along the right frontal convexity measuring up to 0.3 cm. SULCI AND VENTRICLES: The sulci and ventricles are normal in size and position for the patient's stated age. CEREBRUM: There are no focal parenchymal abnormalities. BRAINSTEM: There are no focal parenchymal abnormalities. CEREBELLUM: There are no focal parenchymal abnormalities. VESSELS: The vessels are grossly normal. PARANASAL SINUSES: The paranasal sinuses are clear. ORBITS: The orbits are unremarkable. BONES AND SOFT TISSUE: There is post surgical change to the skull. OTHER: None IMPRESSION: 1. STATUS POST REMOVAL OF SUBDURAL DRAINAGE CATHETER WITH A SMALL AMOUNT OF RESIDUAL SUBDURAL. 2. THERE IS SUBFALCINE SHIFT TO THE LEFT OF APPROXIMATELY 0.5 CM.
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
[2016-11-08] MEDS: Metoprolol Tartrate IV* 1 MG/ML 5 ML VIAL IV SCH ×6 (01:48→22:20)
[2016-11-08] MEDS: Haloperidol INJ IV/IM* 5 MG/ML AMP IV SLOW PU SCH ×4 (01:49→22:20)
[2016-11-08] MEDS: Morphine INJ* 2 MG/ML 1 ML CARPUJECT IV PRN ×4 (01:51→14:59)
[2016-11-08] MEDS: Dexmedetomidine* 50 ML IVPB SCH ×5 (01:56→22:21)
[2016-11-08] MEDS: niCARdipine 0.1MG/ML IVPREMIX* 20 MG/200 ML BAG IV SCH ×9 (01:59→22:21)
[2016-11-08 06:13] LABS: Hematocrit 44 % (42-52); Hemoglobin 14.1 g/dl (14.0-18.0); Mean Corpuscular HGB Conc 32 g/dl (31-36); Mean Corpuscular Hemoglobin 27 pg (27-31); Mean Corpuscular Volume 85 fL (80-94); Mean Platelet Volume 8 um3 (7.4-10.4); Red Blood Count 5.15 10^6/ul (4.0-5.4); Red Cell Distribution Width 14 % (10.5-15); White Blood Count 8.5 10^3/ul (3.5-10.8)
[2016-11-08 06:32] LABS: BUN/Creatinine Ratio 29.9 (8-20); EGFR African American 71.2 (>60); EGFR Non-African American 55.3 (>60); Magnesium 2.6 mg/dL (1.9-2.7); Potassium 4.2 mmol/L (3.5-5.0)
[2016-11-08] MEDS: LORazepam INJ* 2 MG/ML 1 ML VIAL IV PUSH PRN (08:00)
[2016-11-08] MEDS ORDERED: Acetaminophen IV 1GM/100ML * 10 MG/ML VIAL IVPB ONE (10:26)
[2016-11-08] MEDS ORDERED: cloNIDine 0.1 MG PATCH* 0.1 MG/24 HR 7 DAY PATCH TRANSDERM SCH (11:00)
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
--- NOTE | 2016-11-08 12:53 | RAD ---
INDICATION: Nasogastric tube placement. COMPARISON: Comparison is made with a prior chest x-ray study from November 06, 2016. TECHNIQUE: A portable view of the chest was obtained. The film is centered at the diaphragms for assessment of a nasogastric tube. FINDINGS: The heart appears moderately enlarged and unchanged. There is a nasogastric tube which demonstrates normal course. The catheter tip projects over the region of the stomach. The lung apices are cut off on the film. The mid and lower lung bagley appear clear. IMPRESSION: STATUS POST NASOGASTRIC TUBE PLACEMENT. THE CATHETER TIP PROJECTS OVER THE STOMACH.
[2016-11-08] MEDS: amLODIPine TAB* 5 MG NG TUBE SCH (14:13)
[2016-11-08] MEDS: oxyCODONE ORAL.SOLN* 5 MG/5 ML UDC PO PRN (18:23)
[2016-11-08 23:46] LABS: BUN/Creatinine Ratio 30.9 (8-20); Calcium 9.2 mg/dL (8.6-10.3); EGFR Non-African American 54.4 (>60); Magnesium 2.6 mg/dL (1.9-2.7); Potassium 4.3 mmol/L (3.5-5.0)
[2016-11-09] MEDS: Morphine INJ* 2 MG/ML 1 ML CARPUJECT IV PRN ×4 (00:19→21:27)
[2016-11-09] MEDS: Acetaminophen TAB* 325 MG PO PRN ×4 (00:26→18:21)
[2016-11-09] MEDS: Metoprolol Tartrate IV* 1 MG/ML 5 ML VIAL IV SCH ×2 (00:38→04:38)
[2016-11-09] MEDS: niCARdipine 0.1MG/ML IVPREMIX* 20 MG/200 ML BAG IV SCH ×12 (00:39→23:22)
[2016-11-09] MEDS: Dexmedetomidine* 50 ML IVPB SCH ×8 (01:59→23:15)
[2016-11-09] MEDS: Haloperidol INJ IV/IM* 5 MG/ML AMP IV SLOW PU SCH ×4 (02:35→19:53)
[2016-11-09 06:03] LABS: BUN/Creatinine Ratio 31.4 (8-20); Calcium 8.8 mg/dL (8.6-10.3); EGFR African American 67.7 (>60); EGFR Non-African American 52.6 (>60); Magnesium 2.6 mg/dL (1.9-2.7); Phosphorus 3.4 mg/dL (2.5-5.0); Potassium 4.2 mmol/L (3.5-5.0)
[2016-11-09] MEDS ORDERED: Metoprolol Tartrate IV* 1 MG/ML 5 ML VIAL IV PRN (10:06)
--- NOTE | 2016-11-09 10:16 | PN ---
Progress Note - Progress Note SOAP: Subjective: []Gradually improving Now verbalizing a little Tube feedings begun Objective: []Icteris sclera Wound OK Moves all extremities well Follows commands poorly Assessment: []Slowly improving Plan: []Will check LFTs F/U CT pending
[2016-11-09] MEDS: Metoprolol Tartrate TAB* 50 mg NG TUBE SCH ×2 (10:19→20:21)
[2016-11-09] MEDS: Lansoprazole SOLUTAB* 30 MG G TUBE SCH (10:19)
[2016-11-09] MEDS: amLODIPine TAB* 5 MG NG TUBE SCH (10:19)
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
[2016-11-09 11:02] LABS: Albumin 3.1 g/dL (3.2-5.2); Direct Bilirubin 1.4 mg/dL (0.03-0.18); Globulin 3.8 g/dL (2-4); Indirect Bilirubin 0.8 mg/dL (0.3-1.0); Total Bilirubin 2.2 mg/dL (0.2-1.0); Total Protein 6.9 g/dL (6.4-8.9)
--- NOTE | 2016-11-09 13:04 | RAD ---
HISTORY: Follow-up subdural hematoma COMPARISONS: November 07, 2016 TECHNIQUE: Multiple contiguous axial CT scans were obtained of the head without intravenous contrast. FINDINGS: HEMORRHAGE/INFARCT: There is no appreciable hemorrhage. There is no acute infarct. MASSES/SHIFT: There is minimal subfalcine shift to the left, approximately 0.3 cm.. There is no mass. EXTRA-AXIAL SPACES: Again noted is a small amount of pneumocephalus with a small amount of residual subdural along the right frontal and parietal convexity. This is stable SULCI AND VENTRICLES: The sulci and ventricles are normal in size and position for the patient's stated age. CEREBRUM: There are no focal parenchymal abnormalities. BRAINSTEM: There are no focal parenchymal abnormalities. CEREBELLUM: There are no focal parenchymal abnormalities. VESSELS: The vessels are grossly normal. PARANASAL SINUSES: The paranasal sinuses are clear. ORBITS: The orbits are unremarkable. BONES AND SOFT TISSUE: There is postsurgical change to the skull. OTHER: None IMPRESSION: STATUS POST DRAINAGE OF RIGHT FRONTOPARIETAL SUBDURAL HEMATOMA. THERE IS MINIMAL RESIDUAL PNEUMOCEPHALUS AND SUBDURAL FLUID WITH MINIMAL, DECREASING SUBFALCINE SHIFT TO THE LEFT
[2016-11-09] MEDS ORDERED: cloNIDine 0.2 MG PATCH* 0.2 MG/24 HR 7 DAY PATCH TRANSDERM SCH (13:44)
[2016-11-09 14:48] LABS: Urine Bacteria Absent (Absent); Urine Bilirubin Negative (Negative); Urine Glucose Negative (Negative); Urine Nitrite Negative (Negative)
[2016-11-09] MEDS: Heparin VIAL(*) 5000 UNITS/ML VIAL (FIVE THOUSAND) SUBCUT SCH ×2 (15:44→21:26)
[2016-11-09] MEDS: hydrALAZINE TAB* 25 MG PO SCH ×2 (17:10→20:21)
[2016-11-10] MEDS: Acetaminophen TAB* 325 MG PO PRN ×5 (00:34→17:24)
[2016-11-10] MEDS: niCARdipine 0.1MG/ML IVPREMIX* 20 MG/200 ML BAG IV SCH ×10 (00:54→19:01)
[2016-11-10] MEDS: Dexmedetomidine* 50 ML IVPB SCH ×7 (01:50→23:06)
[2016-11-10] MEDS: Haloperidol INJ IV/IM* 5 MG/ML AMP IV SLOW PU SCH ×4 (01:51→20:02)
[2016-11-10] MEDS: oxyCODONE ORAL.SOLN* 5 MG/5 ML UDC PO PRN (03:53)
[2016-11-10 05:08] LABS: Hematocrit 45 % (42-52); Hemoglobin 14.7 g/dl (14.0-18.0); Mean Corpuscular HGB Conc 33 g/dl (31-36); Mean Corpuscular Hemoglobin 27 pg (27-31); Mean Corpuscular Volume 83 fL (80-94); Mean Platelet Volume 9 um3 (7.4-10.4); Red Blood Count 5.39 10^6/ul (4.0-5.4); Red Cell Distribution Width 14 % (10.5-15); White Blood Count 12.2 10^3/ul (3.5-10.8)
[2016-11-10] MEDS: Heparin VIAL(*) 5000 UNITS/ML VIAL (FIVE THOUSAND) SUBCUT SCH ×3 (05:09→21:48)
[2016-11-10 05:10] LABS: Comments Flag Yes
[2016-11-10 05:11] LABS: Add Diff/Slide Review? Slide Review Added
[2016-11-10 05:22] LABS: BUN/Creatinine Ratio 32.5 (8-20); Calcium 8.7 mg/dL (8.6-10.3); Direct Bilirubin 0.9 mg/dL (0.03-0.18); EGFR African American 76.4 (>60); EGFR Non-African American 59.4 (>60); Globulin 3.6 g/dL (2-4); Indirect Bilirubin 0.8 mg/dL (0.3-1.0); Magnesium 2.3 mg/dL (1.9-2.7); Phosphorus 3.2 mg/dL (2.5-5.0); Total Bilirubin 1.7 mg/dL (0.2-1.0); Total Protein 6.6 g/dL (6.4-8.9)
[2016-11-10] MEDS: hydrALAZINE TAB* 25 MG PO SCH ×4 (08:04→21:08)
[2016-11-10] MEDS: Lansoprazole SOLUTAB* 30 MG G TUBE SCH (08:04)
[2016-11-10] MEDS: amLODIPine TAB* 5 MG NG TUBE SCH (08:04)
[2016-11-10] MEDS: Metoprolol Tartrate TAB* 50 mg NG TUBE SCH (08:04)
[2016-11-10] MEDS ORDERED: Metoprolol Tartrate TAB* 50 mg NG TUBE ONE (09:51)
[2016-11-10] MEDS ORDERED: Phytonadione Oral Solution* 5 MG/25 ML UDC NG TUBE ONE (09:53)
[2016-11-10] MEDS ORDERED: hydrALAZINE IV* 20 MG/ML VIAL IV SLOW PU PRN (09:54)
[2016-11-10] MEDS ORDERED: cloNIDine 0.3 MG PATCH* 0.3 MG/24 HR 7 DAY PATCH TRANSDERM SCH (10:00)
--- NOTE | 2016-11-10 10:34 | RAD ---
HISTORY: Fever, aspiration COMPARISONS: November 08, 2016 VIEWS:1: Single frontal portable view of the chest at 10:14 AM FINDINGS: LINES AND TUBES: A feeding tube is noted with tip in the region of the pylorus. It is indeterminate if this prepyloric or postpyloric. CARDIOMEDIASTINAL SILHOUETTE: The cardiac silhouette is enlarged. The cardiomediastinal silhouette is otherwise normal for portable technique. PLEURA: The costophrenic angles are sharp. No pleural abnormalities are noted. LUNG PARENCHYMA: The lungs are clear. ABDOMEN: The upper abdomen is clear. There is no subphrenic gas. BONES AND SOFT TISSUES: No bone or soft tissue abnormalities are noted. IMPRESSION: 1. LINES AND TUBES ABOVE. 2. CARDIOMEGALY.
--- NOTE | 2016-11-10 10:38 | PN ---
Progress Note - Progress Note SOAP: Subjective: []POD #6 More alert Verbalizing now Still agitated Objective: []WBC up slightly Moves all extremities well Verbalizing better Assessment: []Stable ,improving neurologically F/U CT continues to improve Plan: []Continue to monitor neurologically
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
[2016-11-10] MEDS: Metoprolol Tartrate IV* 1 MG/ML 5 ML VIAL IV SCH (10:56)
[2016-11-10] MEDS: Metoprolol Tartrate TAB* 100 MG TAB NG TUBE SCH (21:08)
[2016-11-11] MEDS: Dexmedetomidine* 50 ML IVPB SCH ×2 (02:13→06:28)
[2016-11-11] MEDS: Haloperidol INJ IV/IM* 5 MG/ML AMP IV SLOW PU SCH ×4 (02:31→20:07)
[2016-11-11] MEDS: niCARdipine 0.1MG/ML IVPREMIX* 20 MG/200 ML BAG IV SCH (02:38)
[2016-11-11 05:23] LABS: Hematocrit 49 % (42-52); Hemoglobin 15.7 g/dl (14.0-18.0); Mean Corpuscular HGB Conc 32 g/dl (31-36); Mean Corpuscular Hemoglobin 27 pg (27-31); Mean Corpuscular Volume 84 fL (80-94); Mean Platelet Volume 9 um3 (7.4-10.4); Red Blood Count 5.83 10^6/ul (4.0-5.4); Red Cell Distribution Width 14 % (10.5-15); White Blood Count 14.2 10^3/ul (3.5-10.8)
[2016-11-11 05:47] LABS: Albumin 3.3 g/dL (3.2-5.2); BUN/Creatinine Ratio 33.3 (8-20); Calcium 9.2 mg/dL (8.6-10.3); EGFR African American 80.8 (>60); EGFR Non-African American 62.9 (>60); Globulin 3.5 g/dL (2-4); Magnesium 2.4 mg/dL (1.9-2.7); Phosphorus 3.8 mg/dL (2.5-5.0); Potassium 3.7 mmol/L (3.5-5.0); Total Bilirubin 1.3 mg/dL (0.2-1.0); Total Protein 6.8 g/dL (6.4-8.9)
[2016-11-11] MEDS: Heparin VIAL(*) 5000 UNITS/ML VIAL (FIVE THOUSAND) SUBCUT SCH ×3 (05:56→20:18)
--- NOTE | 2016-11-11 07:36 | PN ---
Progress Note - Progress Note SOAP: Subjective: []Continues to improve Now following commands, verbalizing Objective: []More appropriate Moves all extremities well Wound looks good Assessment: []Stable post op Plan: []Would be good candidate for head injury rehab facility Might try swallowing eval
[2016-11-11] MEDS ORDERED: niCARdipine 0.1MG/ML IVPREMIX* 20 MG/200 ML BAG IV SCH (08:38)
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
[2016-11-11] MEDS: Metoprolol Tartrate TAB* 100 MG TAB NG TUBE SCH ×2 (09:21→20:11)
[2016-11-11] MEDS: amLODIPine TAB* 5 MG NG TUBE SCH (09:21)
[2016-11-11] MEDS: Lansoprazole SOLUTAB* 30 MG G TUBE SCH (09:21)
[2016-11-11] MEDS: hydrALAZINE TAB* 25 MG PO SCH ×4 (09:21→20:11)
[2016-11-12] MEDS: Haloperidol INJ IV/IM* 5 MG/ML AMP IV SLOW PU SCH ×2 (02:11→07:43)
[2016-11-12] MEDS: Heparin VIAL(*) 5000 UNITS/ML VIAL (FIVE THOUSAND) SUBCUT SCH ×3 (04:58→21:22)
[2016-11-12 06:25] LABS: BUN/Creatinine Ratio 32.5 (8-20); Calcium 8.6 mg/dL (8.6-10.3); EGFR African American 83.2 (>60); EGFR Non-African American 64.7 (>60); Magnesium 2.1 mg/dL (1.9-2.7); Phosphorus 3.4 mg/dL (2.5-5.0); Potassium 3.8 mmol/L (3.5-5.0)
[2016-11-12] MEDS: amLODIPine TAB* 5 MG NG TUBE SCH (09:17)
[2016-11-12] MEDS: Metoprolol Tartrate TAB* 100 MG TAB NG TUBE SCH (09:18)
[2016-11-12] MEDS: hydrALAZINE TAB* 25 MG PO SCH (09:18)
[2016-11-12] MEDS: Lansoprazole SOLUTAB* 30 MG G TUBE SCH (09:18)
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
--- NOTE | 2016-11-12 11:01 | PN ---
Progress Note - Progress Note SOAP: Subjective: [] Much better now that sedation stopped Sitting up in chair,visiting with Still with tube feeds Objective: []Moves all ext well Wound OK Conversing well Assessment: []Much improved Plan: []Cont current course
[2016-11-12] MEDS: Valsartan TAB* 160 MG PO SCH (12:18)
[2016-11-12] MEDS: Metoprolol Tartrate TAB* 100 MG TAB PO SCH (21:21)
[2016-11-13] MEDS: Heparin VIAL(*) 5000 UNITS/ML VIAL (FIVE THOUSAND) SUBCUT SCH ×3 (08:16→21:11)
[2016-11-13] MEDS: amLODIPine TAB* 5 MG PO SCH (09:37)
[2016-11-13] MEDS: Metoprolol Tartrate TAB* 100 MG TAB PO SCH ×2 (09:38→21:11)
[2016-11-13] MEDS: Valsartan TAB* 160 MG PO SCH (09:39)
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
[2016-11-14 04:56] LABS: Hematocrit 44 % (42-52); Hemoglobin 14.6 g/dl (14.0-18.0); Mean Corpuscular HGB Conc 33 g/dl (31-36); Mean Corpuscular Hemoglobin 27 pg (27-31); Mean Corpuscular Volume 82 fL (80-94); Mean Platelet Volume 10 um3 (7.4-10.4); Red Blood Count 5.37 10^6/ul (4.0-5.4); Red Cell Distribution Width 14 % (10.5-15); White Blood Count 8.9 10^3/ul (3.5-10.8)
[2016-11-14 05:10] LABS: Albumin 3.1 g/dL (3.2-5.2); BUN/Creatinine Ratio 30.5 (8-20); Calcium 8.8 mg/dL (8.6-10.3); EGFR African American 67.1 (>60); EGFR Non-African American 52.2 (>60); Globulin 3.3 g/dL (2-4); Magnesium 1.9 mg/dL (1.9-2.7); Phosphorus 3.3 mg/dL (2.5-5.0); Potassium 4.1 mmol/L (3.5-5.0); Total Bilirubin 1.1 mg/dL (0.2-1.0); Total Protein 6.4 g/dL (6.4-8.9)
[2016-11-14] MEDS: Heparin VIAL(*) 5000 UNITS/ML VIAL (FIVE THOUSAND) SUBCUT SCH ×3 (05:36→22:00)
[2016-11-14] MEDS: amLODIPine TAB* 5 MG PO SCH (08:19)
[2016-11-14] MEDS: Valsartan TAB* 160 MG PO SCH (08:19)
[2016-11-14] MEDS: Metoprolol Tartrate TAB* 100 MG TAB PO SCH ×2 (08:19→20:00)
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
[2016-11-14] MEDS: Colchicine* 0.6 MG TAB PO SCH (09:44)
[2016-11-14] MEDS ORDERED: oxyCODONE TAB* 5 MG TAB PO PRN (12:40)
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
[2016-11-15] MEDS: Heparin VIAL(*) 5000 UNITS/ML VIAL (FIVE THOUSAND) SUBCUT SCH (05:59)
[2016-11-15] MEDS: Valsartan TAB* 160 MG PO SCH (07:56)
[2016-11-15] MEDS: Colchicine* 0.6 MG TAB PO SCH (07:57)
[2016-11-15] MEDS: amLODIPine TAB* 5 MG PO SCH (07:57)
[2016-11-15] MEDS: Metoprolol Tartrate TAB* 100 MG TAB PO SCH (07:57)
--- NOTE | 2016-11-15 09:59 | DS ---
CRITICAL CARE MEDICINE DISCHARGE SUMMARY ADMISSION DATE: 11/02/2016 ICU ADMISSION DATE: 11/04/2016 ICU DISCHARGE DATE: 11/15/2016 PRIMARY CARE PROVIDER: Dr. Bruce Browning REFERRING PHYSICIAN: Dr. Stearns DIAGNOSIS: 1. Traumatic right frontal/temporal subdural hematoma post mechanical fall 10/23. 2. Emergent cardiotomy and hematoma evacuation 11/04/2016 for mental status changes. 3. Delirium associated with general medical condition. 4. Acute on chronic uncontrolled hypertension. 5. Chronic atrial fibrillation. 6. Acute gout flare. 7. Deconditioning. MEDICATIONS AT DISCHARGE: Acetaminophen (Tylenol Tab*) 650 mg PO Q4H PRN: FEVER/PAIN Amlodipine Besylate (Norvasc Tab*) 10 mg PO DAILY MARCELLE Clonidine HCl (Ylkgilxy-Lav-3 0.3 Mg Patch*) 0.3 mg TRANSDERM Q7D MARCELLE Colchicine (Colcrys*) 0.6 mg PO DAILY MARCELLE Metoprolol Tartrate (Lopressor Tab*) 100 mg PO Q12HR MARCELLE Valsartan (Diovan Tab*) 320 mg PO DAILY MARCELLE ALLERGIES: Nifedipine HOSPITAL COURSE: 56 year old male with history of hypertension and chronic atrial fibrillation suffering a mechanical fall on ice and hitting his head hard on 10/23/2016. Self treated with over the counter medication ultimately presenting on 11/02/2016. Admitted with right subdural hematoma and conservative management. Mental status worsened and patient taken for emergent evacuation. Tolerated operation fine but had significant delirium and agitation post. Continued to slowly improve but continued needing adjustments of hypertension medications, rate control of atrial fibrillation and nasogastric tube with tube feeds briefly. CT scans remained stable. When he regained improved mental clarity he was able to resume diet and participation with therapy. He is on regular diet, ambulating with walker with deconditioning and mild right greater then left weakness. He complained of a gout flare of his left ankle and has been placed back on colchicine. Blood pressure has been stable, as well as rate control. Will need follow up in regards to potential anticoagulation needs after seeing neurosurgery and follow up for chronic and secondary hypertension. DISPOSITION: [facility] DIET: Regular ACTIVITY: Out of bed, ambulate with assist CODE STATUS: FULL CODE SPECIAL INSTRUCTIONS: FOLLOW UP: with primary care after discharge from [facility] and with Neurosurgery ( Dr. Ruby) in 2 weeks with a non-contrast head CT prior to appointment. Claudette Gordon DO
[2016-11-15 10:20] VITALS: BP 146/81
--- NOTE | 2016-11-15 10:26 | PN ---
Progress Note - Progress Note Note: CRITICAL CARE MEDICINE Date: 11/15/16 Time: 900 SUBJECTIVE: Patient seen and examined. Gout better. doing well. PHYSICAL EXAM: Vital Signs: Reviewed. SBP 130s, HR 70-80s irr. Neurologic: communicating. nonfocal. BROWN, good strength HEENT: pupils equal and reactive. Trachea midline. Cardiovascular: S1 S2, 3/6 holosys m Respiratory: clear Abdomen: Soft, nt Extremities: Warm. No edema. Access: piv LABS: Reviewed. IMAGING: Reviewed. MEDICATIONS: Reviewed. ASSESSMENT: 56 M Traumatic SDH s/p emergent evacuation Mild Delirium/agitation - improved Chronic uncontrolled htn - better Aspiration pneumonitis - recovered Dysphasia - improving Chronic afib Gout PLAN: doing great. plan for pmru today (see dc sum) continue rx oupt f/u Code Status: Full Critical Care Time: 25min FBela Gordon DO
== END 2016-11-15 11:20 | DRG 20 ==
LOC: ED 17:49 → MEDTELE 21:57 → ICU 11-04 13:13
PROVIDERS: ADMIT Pediatrics; ATTEND Internal Medicine Critical Care Medicine
PROC: 30233R1 Transfusion of Nonautologous Platelets into Peripheral Vein, Percutaneous Approach (ICD-10-PCS; 2016-11-02)
PROC: 00C40ZZ Extirpation of Matter from Intracranial Subdural Space, Open Approach (ICD-10-PCS; principal; 2016-11-04 11:30)
PROC: 0DH67UZ Insertion of Feeding Device into Stomach, Via Natural or Artificial Opening (ICD-10-PCS; 2016-11-08)
PROC: 3E0G76Z Introduction of Nutritional Substance into Upper GI, Via Natural or Artificial Opening (ICD-10-PCS; 2016-11-08)
DX: S06.5X0A Traumatic subdural hemorrhage without loss of consciousness, initial encounter (principal); S06.1X0A Traumatic cerebral edema without loss of consciousness, initial encounter; J69.0 Pneumonitis due to inhalation of food and vomit; I47.2 Ventricular tachycardia; I48.2 Chronic atrial fibrillation; R13.10 Dysphagia, unspecified; F05 Delirium due to known physiological condition; W00.0XXA Fall on same level due to ice and snow, initial encounter; Y92.9 Unspecified place or not applicable; Z88.8 Allergy status to other drugs, medicaments and biological substances; I25.10 Atherosclerotic heart disease of native coronary artery without angina pectoris; R05 Cough; I12.9 Hypertensive chronic kidney disease with stage 1 through stage 4 chronic kidney disease, or unspecified chronic kidney disease; I71.2 Thoracic aortic aneurysm, without rupture; N18.3 Chronic kidney disease, stage 3 (moderate); R45.1 Restlessness and agitation; R01.1 Cardiac murmur, unspecified; M10.9 Gout, unspecified; R53.1 Weakness
CPT/HCPCS: 32554; 36415; 70450; 70496; 70498; 71010; 72125; 80048; 80053; 80076; 80329; 81003; 81015; 82140; 83605; 83735; 84100; 84300; 85025; 85027; 85049; 85610; 85652; 85730; 86850; 86900; 86901; 87040; 93005; 93306; 94760; 97112; 97530; A9270-GY; C1713; C1776; G0480; G8996-GN-CK; G8997-GN-CH; J0330; J0360; J0690; J1100; J1170; J1630; J1644; J2060; J2270; J2704; J2765; J3010; J3490; P9035; Q9967

== ENCOUNTER 2016-11-15 08:58 | Inpatient (IN) | payer BC ==
[2016-11-15] MEDS ORDERED: Bisacodyl SUPP* 10 MG SUPP PR PRN (11:34)
[2016-11-15] MEDS ORDERED: Senna TAB PO PRN (11:34)
[2016-11-15] MEDS ORDERED: Al Hydrox/Mg Hydrox/Simet LIQ* 30 ML UDC PO PRN (11:34)
[2016-11-15] MEDS ORDERED: Magnesium Hydroxide LIQ* 30 ML UDC PO PRN (11:34)
[2016-11-15] MEDS ORDERED: cloNIDine 0.3 MG PATCH* 0.3 MG/24 HR 7 DAY PATCH TRANSDERM SCH (12:00)
--- NOTE | 2016-11-15 12:42 | PMRUTEAM ---
PMRU: Goals Current Status: Nursing: Current Status Skin Deviations [Right Head] Incision Skin Deviation Description [ intact and open to air Right Head] Physical Therapy: Current Status Bed Mobility Assistance Supervision Transfer Moblility Assistance Contact Guard Assist TO MIN ASSIST Ambulation Assistance Min Assist 40FT Ambulation Assistive Devices Rolling Walker Social Work: Current Status Discharge Plan return home with home care svs and family support Potential for Family Training pt's is involved and supportive Anticipated Discharge Home Destination Discharge With home care svs and family support OCCUPATIONAL THERAPY CURRENT STATUS: MOD ASSIST FOR FUNCTIONAL TRANSFERS, MOD ASSIST DRESSING AND BATHING AND TOILETING. SPEECH THERAPY: DEFICITS IN ATTENTION, SEQUENCING AND MEMORY. Goals: Nutrition: Goals Intervention Goals 1. pt will tolerate po intake without s/sx dysphagia 2. electrolytes will be maintained within normal ranges 3. skin integrity will remain intact; no evidence of skin breakdown/open areas 4. bowel pattern will be regulated without noted constipation or diarrhea 5. pt will receive PARVIZ diet info as appropriate prior to d/c home Social Work: Goals Discharge Plan return home with home care svs and family support Potential for Family Training pt's is involved and supportive Anticipated Discharge Home Destination Discharge With home care svs and family support PHYSICAL THERAPY: MODIFIED INDEPENDENT TRANSFERS, AMBULATION AND A FLIGHT OF STAIRS WITHOUT AD. OCCUPATIONAL THERAPY: MODIFIED INDEPENDENT DRESSING, BATHING, TOILETING, HOME TASKS. SPEECH THERAPY: WILL COMPLETE 90% COGNITIVE AND LINGUISTIC TASKS. Care Plan: SELF ADMINISTER MEDICATIONS. Medicine Note: Length of Stay: [2 WEEKS] Anticipated Discharge Destination: Home Tentative Discharge Date: [11/29/16] Discharged to: [HOME]
[2016-11-15] MEDS: Heparin VIAL(*) 5000 UNITS/ML VIAL (FIVE THOUSAND) SUBCUT SCH ×2 (14:52→21:57)
--- NOTE | 2016-11-15 15:22 | HP ---
CC: Dr. Browning; Dr. Ruby REHABILITATION ADMISSION: DATE OF ADMISSION: 11/15/16 PRIMARY CARE PROVIDER: Dr. Browning. NEUROSURGEON: Dr. Ruby. REASON FOR ADMISSION: Right traumatic subdural hematoma. HISTORY OF PRESENT ILLNESS: This is a 56-year-old man who on October 23 slipped on some ice and fell. He did not lose consciousness, but started getting headaches within the next few days. He started using increasing doses of aspirin for worsening headaches and then adding in ibuprofen. He presented to the emergency room on 11/02/[address] of the head showed a right subdural hematoma with 7 mm of shift. He was seen by Dr. Cardona in Neurosurgery and admitted. He was given platelets, put on Keppra for seizure prophylaxis, advised to keep his systolic blood pressure less than 160 and observation. Also, in the emergency room, CT of the cervical spine just showed mild degenerative changes. He had a CTA of the head that showed no pathologic stenosis, his subdural and question of a possible AVM from a distal middle cerebral artery branch. He was normally on aspirin and that was discontinued. It is not clear whether he was on any other anticoagulation for his chronic atrial fibrillation but he has remained off any anticoagulation except for eventually DVT prophylaxis. He was followed with serial CTs of the head and on 11/04/16, he had a worsening headache with decreased level of consciousness and some left-sided weakness. At that time CT showed an increase in the shift with subfalcine herniation. He was also noted to have some nonsustained V- tach on telemetry. He was taken to the OR by Dr. Cardona on 11/04/16 for right craniotomy for subdural evacuation and placement of a subdural drain. Over the next 10 days, he received supportive care. His systolic blood pressures initially were in the 190s and he was started on multiple medications to control this better. He was having episodes of agitation. He had a transthoracic echocardiogram on November 05 showing severe left ventricular hypertrophy with ejection fraction of 60% to 65% and left atrial enlargement. He has had low-grade temperatures without any infectious source seen, although it was felt that he had some aspiration pneumonitis which resolved without any antibiotics and pulmonary toilet. The drain was removed on 11/06/16. NG tube was placed on 11/08/16 and he received tube feeds. When he started becoming more alert and able to take p.o., the NG tube was discontinued on 11/12/16. He did have some high ammonia levels, treated with lactulose. His bilirubin was also been as high as 1.7 on November 10. On most recent check it was 1.1. He has chronic kidney disease and his creatinine has fluctuated from 1.17 to 1.7. Last check was 1.4. He started verbalizing on 11/11/16. His Fiore was out on November 12. When he became more alert, he started complaining of left ankle pain which felt like one of his gout attacks and his home dose of colchicine was started which he uses on an as needed basis for attacks. He avoids NSAIDs due to his chronic kidney disease and does not take colchicine unless he really needs it once again because of the kidney disease. Prior to admission, he was independent with all mobility and activities of daily living without any assistive devices. With physical therapy, he has required supervision for bed mobility, he can transfer with contact guard assistance and a rolling walker. He requires minimum amount of assistance for ambulating with a rolling walker up to 40 feet. With occupational therapy, he requires a moderate amount of assistance for lower body dressing, bathing, and maximum amount of assistance for toileting. With speech therapy, initially he was on pureed solids but was upgraded to a regular diet and can now tolerate thin liquids. He tends to drink with small sips and did this even prior to his injury. He has not had a cognitive evaluation yet. PAST MEDICAL HISTORY: 1. Subdural hematoma, see history of present illness. 2. Chronic kidney disease, stage 3. 3. Chronic atrial fibrillation. 4. Hypertension. 5. History of pericardial effusion requiring pericardial window. 6. History of ascending thoracic aortic aneurysm. MEDICATIONS: 1. Clonidine 0.3 mg patch q.7 days. 2. Colchicine 0.6 mg q. day. 3. Diovan 320 mg q. day. 4. Metoprolol 100 mg q.12 hours. 5. Norvasc 10 mg q. day. 6. Tylenol 650 mg q.4 hours p.r.n. pain. 7. Heparin 5000 units subcutaneously q.8 hours for DVT prophylaxis. ALLERGIES: NIFEDIPINE in the past gave him headache and emesis. FAMILY HISTORY: Noncontributory. SOCIAL HISTORY: He lives with his . There are 3 steps to enter their one- level mobile home. No smoking. He quit drinking in 1980. 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 His , Rosalba Cannon, is his healthcare proxy, her phone number is [phone], if he cannot make decisions for himself. REVIEW OF SYSTEMS: See history of present illness and past medical history. Remainder of 10-system review was completed, no other significant findings. PHYSICAL EXAMINATION GENERAL: Well-developed, well-nourished, appearing stated age. Mental status, no acute distress. He is alert and oriented x3. VITAL SIGNS: Temperature 98.2, heart rate 70, respirations 24, oxygenation 98% on room air, blood pressure 137/75. HEENT: Normocephalic, atraumatic. Oropharynx clear with poor dentition especially upper. Moist mucous membranes. LUNGS: Clear to auscultation bilaterally. HEART: Irregularly irregular. ABDOMEN: Active bowel sounds, soft, nontender, nondistended. EXTREMITIES: No clubbing, cyanosis, or edema. MUSCULOSKELETAL: He has functional range of motion of all of his major joints. NEUROLOGIC: Cranial nerves II through XII are intact. Motor testing shows 5/5 strength in bilateral upper and lower extremities with normal sensation. LABORATORY DATA: On 11/14/16, hemoglobin 14.6, hematocrit 44, white blood cells 8.9, platelets 164. Creatinine 1.4, BUN 43. Sodium 136, potassium 4.1. Total bilirubin 1.1, AST 40, ALT 41, alkaline phosphatase 125. IMPRESSION: A 56-year-old man status post right subdural hematoma, traumatically, with brain injury. He will be admitted to the [facility] so he can return to independent living. PLAN: 1. Brain injury secondary to traumatic subdural hematoma. He needs a CT of the head prior to an appointment following up with Neurosurgery in 2 weeks. Any anticoagulation including regular aspirin should be held until it is okayed by Neurosurgery, although subcu heparin is okay for DVT prophylaxis. 2. Hypertension. Continue with current medications. 3. Gout. Continue colchicine until he is over this current attack. 4. Chronic kidney disease. We will regularly monitor his renal function. 5. Chronic atrial fibrillation. He is currently rate controlled. Once again, hold anticoagulation until cleared by Neurosurgery. 6. DVT prophylaxis. Subcu heparin and TEDs. 7. Impaired mobility. He will be seen by Physical Therapy for bed mobility, transfer, gait, and stair training. 8. Impaired self-care. He will be seen by Occupational Therapy for ADL training and equipment evaluation. 9. Impaired cognition. He will have cognitive evaluation by Speech Therapy. 10. Advance directives. He is full code, and his is his healthcare proxy. 11. Estimated length of stay, 10 to 14 days and return to home. [id number]/[facility] #: [id number] KOFI
[2016-11-15] MEDS: Acetaminophen TAB* 325 MG PO PRN (16:38)
[2016-11-15] MEDS: Metoprolol Tartrate TAB* 100 MG TAB PO SCH (20:13)
[2016-11-15] MEDS: Docusate CAP* 100 MG PO SCH (21:58)
[2016-11-16] MEDS: Heparin VIAL(*) 5000 UNITS/ML VIAL (FIVE THOUSAND) SUBCUT SCH ×3 (05:37→21:03)
[2016-11-16] MEDS: Acetaminophen TAB* 325 MG PO PRN (05:43)
[2016-11-16 08:20] LABS: Hematocrit 41 % (42-52); Hemoglobin 13.9 g/dl (14.0-18.0); Mean Corpuscular HGB Conc 34 g/dl (31-36); Mean Corpuscular Hemoglobin 27 pg (27-31); Mean Corpuscular Volume 81 fL (80-94); Mean Platelet Volume 10 um3 (7.4-10.4); Red Blood Count 5.06 10^6/ul (4.0-5.4); Red Cell Distribution Width 14 % (10.5-15); White Blood Count 8.7 10^3/ul (3.5-10.8)
[2016-11-16 08:34] LABS: Albumin 2.9 g/dL (3.2-5.2); BUN/Creatinine Ratio 25.2 (8-20); Calcium 8.8 mg/dL (8.6-10.3); EGFR African American 73.1 (>60); EGFR Non-African American 56.8 (>60); Globulin 3.3 g/dL (2-4); Potassium 4.2 mmol/L (3.5-5.0); Total Bilirubin 0.8 mg/dL (0.2-1.0); Total Protein 6.2 g/dL (6.4-8.9)
[2016-11-16] MEDS: Valsartan TAB* 160 MG PO SCH (09:53)
[2016-11-16] MEDS: amLODIPine TAB* 5 MG PO SCH (09:53)
[2016-11-16] MEDS: Docusate CAP* 100 MG PO SCH ×2 (09:53→21:03)
[2016-11-16] MEDS: Metoprolol Tartrate TAB* 100 MG TAB PO SCH ×2 (09:54→21:03)
[2016-11-16] MEDS: Colchicine* 0.6 MG TAB PO SCH (09:54)
[2016-11-17] MEDS: Acetaminophen TAB* 325 MG PO PRN (05:53)
[2016-11-17] MEDS: Heparin VIAL(*) 5000 UNITS/ML VIAL (FIVE THOUSAND) SUBCUT SCH ×3 (05:53→20:49)
[2016-11-17] MEDS: Metoprolol Tartrate TAB* 100 MG TAB PO SCH ×2 (08:11→20:49)
[2016-11-17] MEDS: amLODIPine TAB* 5 MG PO SCH (08:51)
[2016-11-17] MEDS: Docusate CAP* 100 MG PO SCH ×2 (08:52→20:44)
[2016-11-17] MEDS: Colchicine* 0.6 MG TAB PO SCH (08:52)
[2016-11-17] MEDS: Valsartan TAB* 160 MG PO SCH (08:53)
[2016-11-17] MEDS ORDERED: cloNIDine 0.2 MG PATCH* 0.2 MG/24 HR 7 DAY PATCH TRANSDERM SCH (09:00)
[2016-11-18] MEDS: Heparin VIAL(*) 5000 UNITS/ML VIAL (FIVE THOUSAND) SUBCUT SCH ×3 (05:32→21:19)
[2016-11-18] MEDS: Acetaminophen TAB* 325 MG PO PRN (05:33)
[2016-11-18 07:04] LABS: BUN/Creatinine Ratio 26.3 (8-20); Calcium 8.7 mg/dL (8.6-10.3); EGFR African American 61.5 (>60); EGFR Non-African American 47.9 (>60); Potassium 4.4 mmol/L (3.5-5.0)
[2016-11-18] MEDS: Docusate CAP* 100 MG PO SCH ×2 (08:04→20:13)
[2016-11-18] MEDS: Valsartan TAB* 160 MG PO SCH (08:04)
[2016-11-18] MEDS: amLODIPine TAB* 5 MG PO SCH (08:04)
[2016-11-18] MEDS: Colchicine* 0.6 MG TAB PO SCH (08:04)
[2016-11-18] MEDS: Metoprolol Tartrate TAB* 100 MG TAB PO SCH ×2 (08:04→20:13)
[2016-11-19] MEDS: Heparin VIAL(*) 5000 UNITS/ML VIAL (FIVE THOUSAND) SUBCUT SCH ×3 (05:54→21:34)
[2016-11-19] MEDS: Metoprolol Tartrate TAB* 100 MG TAB PO SCH ×2 (08:28→20:07)
[2016-11-19] MEDS: Docusate CAP* 100 MG PO SCH ×2 (08:28→21:34)
[2016-11-19] MEDS: Valsartan TAB* 160 MG PO SCH (08:29)
[2016-11-19] MEDS: amLODIPine TAB* 5 MG PO SCH (08:29)
--- NOTE | 2016-11-19 13:18 | PMRUTEAM ---
PMRU: Goals Current Status: Nursing: Current Status Skin Deviations [Right Head] Incision Skin Deviation Description [ no redness Right Head] Bladder Current Status continent Bowel Current Status continent Nutrition Current Status eats 100% Medication Current Status knows meds and the reason Physical Therapy: Current Status Bed Mobility Assistance Supervision Transfer Moblility Assistance Supervision,Contact Guard Assist Transfer/Bed Mobility None,Rolling Walker Recommended Devices Ambulation Assistance Supervision,Min Assist Ambulation Assistive Devices None,Rolling Walker Number of Feet Patient 1000, 300 Ambulated Stairs Assistance Contact Guard Assist Stairs Recommended Devices One Rail Number of Stairs (1x10)x2 Manual Wheelchair Control/ Bilateral LE's Technique Wheelchair Propulsion Ability Standby Assistance Wheelchair Distance (ft) 100 Objective Comments Patient propelling w/c with (B) LEs to increase strength and coordination with gait. Occupational Therapy: Current Status Upper Body Dressing Supervision Lower Body Dressing Supervision,Contact Guard Assist Bathing Supervision,Contact Guard Assist Toileting Supervision Toilet Transfer Supervision Shower Transfer Supervision,Contact Guard Assist Eating Independent Rec Therapy: Current Status Summary of Assessment and RT assessment complete and pt. is aware of Clinical Impression services. Pt. identified with activities of interest and states he enjoys his life. Pt. requested magazines of interest which were provided to him. Treatment Goals Pt. will engage in leisure activities while on the unit. Treatment Plan Provide RT services and encourage involvement. Social Work: Current Status Discharge Plan return home with home care svs and family support Potential for Family Training pt's is involved and supportive Anticipated Discharge Home Destination Discharge With home care svs and family support Nutrition: Current Status Monitoring pt continues to tolerate regular textures and thin liquids for nearly one week; eating nearly 100% of meals. 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 Hx HTN and CKD Speech: Current Status Assessment The patient presented with improvements with attention and cognitive-linguistic tasks. Goals: Physical Therapy: Initial Goals Bed Mobility Assistance Independent Transfer Mobility Assistance Independent Transfer/Bed Mobility None Recommended Devices Ambulation Independent Ambulation Recommended Devices None Ambulation Distance 300 Stairs Assistance Independent Stair Recommended Devices None Number of Stairs 10 Physical Therapy: Updated Goals Transfer/Bed Mobility Rolling Walker Recommended Devices Occupational Therapy: Initial Goals Goals to be Completed in (Days 10-14 ) Upper Body Bathing Routine Modified Independent with Lower Body Bathing Routine Modified Independent with Upper Body Dressing Routine Independent Lower Body Dressing Routine Modified Independent with Toilet Hygeine and Clothing Modified Independent with Management Routine Toilet Transfer Routine Modified Independent with Tub Transfer Routine Modified Independent with Grooming Routine Independent Feeding Routine Independent Nursing: Goals Bladder Goal continent Bowel Goal continent Nutrition Goal eats 100% Medication Goal to know when and what pills to take Nutrition: Goals Intervention Goals 1. pt will tolerate po intake without s/sx dysphagia 2. electrolytes will be maintained within normal ranges 3. skin integrity will remain intact; no evidence of skin breakdown/open areas 4. bowel pattern will be regulated without noted constipation or diarrhea 5. pt will receive PARVIZ diet info as appropriate prior to d/c home Speech: Goals Speech Goal 1 See below Goal 1 Comments LTG: The patient will complete various functional cognitive-linguistic tasks for improved safety, function and independence for daily living tasks at 90% accuracy. STGS: 1. The patient will complete various functional attention tasks at 90% accuracy * Data from 11/18/16:The patient completed functional additional computations at 100% accuracy, subtraction at 100% accuracy, multiplication at 100% accuracy and division at 50 % accuracy without cues for attention this date. 2. The patient will complete immediate memory tasks for digit sequences forward and backward for 4-5 digits at 90% accuracy. 3. The patient will complete sequencing tasks at 90% accuracy. 4. Assess money and time management tasks. * The patient completed functional time management tasks at 86% accuracy, improving to 100% with min cues. * The patient completed functional money management tasks at 80% accuracy with increased time, improving to 100% with min cues. Social Work: Goals Discharge Plan return home with home care svs and family support Potential for Family Training pt's is involved and supportive Anticipated Discharge Home Destination Discharge With home care svs and family support Care Plan: Care Plan ADL's - Improve/Maintain Start: 11/16/16 01:59 Freq: DAILY Status: Active Target: Activity Type Activity Date Activity User E-Sign Co-Sign Detail Recorded Client Recorded Date Recorded By Document 11/18/16 14:51 [id number] 11/18/16 14:51 [id number] 11/18/16 14:51 PMRU Outcome: ADL's/ADL Transfers Orders/Interventions Occupational Therapy Evaluation & Treatment Communication Tool in Patient Room Device Yes Patient to receive OT 5x/wk for 60-120 Therex min/day Self Care Management Group Therapy Neuromuscular ReEducation UE/LE ADL's with Assist Yes ADL Transfers with Assist Yes Toileting: Transfers,Clothing Management Yes ,Hygeine w/Assist Light Kitchen/Laundry w/Assist Yes Progression Toward Outcome/Goals Progressing Communication-Improve/Maintain Start: 11/15/16 15:22 Freq: DAILY Status: Active Target: Activity Type Activity Date Activity User E-Sign Co-Sign Detail Recorded Client Recorded Date Recorded By Document 11/19/16 11:40 [id number] 11/19/16 11:41 [id number] 11/19/16 11:40 PMRU Outcome: Communication/Cognitive Status Outcome/Goals Makes Needs Known Effectively Other Outcomes/Goals The patient will complete various functional cognitive- linguistic tasks to improve safety, function and independence for daily living tasks at 90% accuracy Progression Toward Outcomes/Goals Progressing Outcome/Goals Met Comment The patient completed functional time management tasks at 86% accuracy and money management at 80% accuracy with increased time. Both improved to 100 % with min cues . Continued improvements noted with attention. DVT Prophylaxis- Improve/Maintain Start: 11/16/16 01:59 Freq: DAILY Status: Active Target: Activity Type Activity Date Activity User E-Sign Co-Sign Detail Recorded Client Recorded Date Recorded By Document 11/19/16 10:41 [id number] 11/19/16 10:50 [id number] 11/19/16 10:41 PMRU Outcome: DVT Prophylaxis Outcome/Goals Complies with DVT Prophylaxis /Treatment Demonstrates Knowledge of DVT Prevention/ Treatment Progression Toward Outcome/Goals Progressing Discharge Planning - Improve/Maintain Start: 11/16/16 01:59 Freq: DAILY Status: Active Target: Activity Type Activity Date Activity User E-Sign Co-Sign Detail Recorded Client Recorded Date Recorded By Document 11/19/16 10:41 [id number] 11/19/16 10:50 [id number] 11/19/16 10:41 PMRU Outcome: Discharge Planning Identify Patient Needs yes Update Patient Family No Outcome/Goals Demonstrates Understanding of Discharge Plan Progression Toward Outcome/Goals Progressing Education-Improve/Maintain Start: 11/16/16 01:59 Freq: DAILY Status: Active Target: Activity Type Activity Date Activity User E-Sign Co-Sign Detail Recorded Client Recorded Date Recorded By Document 11/19/16 10:41 [id number] 11/19/16 10:50 [id number] 11/19/16 10:41 PMRU Outcome: Education Outcome/Goals Demonstrate/ Verbalize Understanding of Written Discharge Instructions Encourage Questions Progression Toward Outcome/Goals Progressing Mobility- Improve/Maintain Start: 11/15/16 17:53 Freq: DAILY Status: Active Target: Activity Type Activity Date Activity User E-Sign Co-Sign Detail Recorded Client Recorded Date Recorded By Document 11/18/16 17:11 [id number] 11/18/16 17:11 [id number] 11/18/16 17:11 PMRU Outcome: Mobility Physical Therapy Evaluation and Yes Treatment Activity OOB with Assistance Yes WBAT Yes Device Yes Assistance Yes Patient to be seen 5x/wk for 60-120 min/ Therex day for: Mobility Training Gait Training Balance Other Outcome/Goals Maintain/ Achieve Baseline Mobility Status Improve Mobility Status Demonstrates Proper Use of Assistive Devices Free from Complications of Immobility Progression Toward Outcome/Goals Progressing Bed Mobility Yes: independent Transfers Yes: independent Gait x ft Yes: independent to 300' Up/Down Stairs Yes: independent 10 no rails. Pain/Comfort- Improve/Maintain Start: 11/16/16 01:59 Freq: DAILY Status: Active Target: Activity Type Activity Date Activity User E-Sign Co-Sign Detail Recorded Client Recorded Date Recorded By Document 11/19/16 10:41 [id number] 11/19/16 10:50 [id number] 11/19/16 10:41 PMRU Outcome: Pain/Comfort Outcome/Goals Demonstrates Knowledge and Use of Available Comfort Measures Achieves Acceptable Comfort/Pain Level as Determined by Patient/Condit Maintain Comfort Level Allowing Patient to Fully Participate in Rehab Progression Toward Outcome/Goals Progressing Safety- Improve/Maintain Start: 11/16/16 01:59 Freq: DAILY Status: Active Target: Activity Type Activity Date Activity User E-Sign Co-Sign Detail Recorded Client Recorded Date Recorded By Document 11/19/16 10:41 [id number] 11/19/16 10:50 [id number] 11/19/16 10:41 PMRU Outcome: Safety Outcome/Goals Remain Free of Injury or Harm Cooperates with Safety Measures for Least Restrictive Environment Prevent Falls/ Injury Other Outcome/Goals Pt questioning why he needed someone with him when ambulating. Explain it was for his safety. Progression Toward Outcome/Goals Progressing Skin- Improve/Maintain Start: 11/16/16 01:59 Freq: DAILY Status: Active Target: Activity Type Activity Date Activity User E-Sign Co-Sign Detail Recorded Client Recorded Date Recorded By Document 11/19/16 10:41 [id number] 11/19/16 10:50 [id number] 11/19/16 10:41 PMRU Outcome: Skin Skin Risk Level Medium Skin Orders Turn/Position q2hr While in Bed Outcome/Goals Maintain/ Improve Skin Intergrity Free from Decubitus Maintain/ Improve Wound Status Surgical Incisions Healing Progression Toward Outcome/Goals Progressing Medicine Note: Length of Stay: 3 days Anticipated Discharge Destination: Home Tentative Discharge Date: 11/22/16 Discharged to: Home
[2016-11-19 20:46] LABS: Urine Bilirubin Negative (Negative); Urine Glucose Negative (Negative); Urine Nitrite Negative (Negative)
[2016-11-20] MEDS: Acetaminophen TAB* 325 MG PO PRN ×2 (04:07→10:24)
[2016-11-20] MEDS: Heparin VIAL(*) 5000 UNITS/ML VIAL (FIVE THOUSAND) SUBCUT SCH ×3 (06:07→21:11)
[2016-11-20 07:42] LABS: BUN/Creatinine Ratio 23.2 (8-20); Calcium 8.9 mg/dL (8.6-10.3); EGFR African American 50.3 (>60); EGFR Non-African American 39.1 (>60); Potassium 4.6 mmol/L (3.5-5.0)
[2016-11-20] MEDS: Docusate CAP* 100 MG PO SCH ×2 (08:07→21:17)
[2016-11-20] MEDS: Metoprolol Tartrate TAB* 100 MG TAB PO SCH ×2 (08:08→21:10)
[2016-11-20] MEDS: amLODIPine TAB* 5 MG PO SCH (08:08)
[2016-11-20] MEDS: Valsartan TAB* 160 MG PO SCH (08:08)
[2016-11-21] MEDS: Heparin VIAL(*) 5000 UNITS/ML VIAL (FIVE THOUSAND) SUBCUT SCH (04:50)
[2016-11-21 05:39] VITALS: BP 149/76
[2016-11-21] MEDS: amLODIPine TAB* 5 MG PO SCH (08:12)
[2016-11-21] MEDS: Metoprolol Tartrate TAB* 100 MG TAB PO SCH (08:12)
[2016-11-21] MEDS: Valsartan TAB* 160 MG PO SCH (08:12)
[2016-11-21] MEDS: Docusate CAP* 100 MG PO SCH (08:13)
--- NOTE | 2016-11-21 22:28 | DS ---
DISCHARGE SUMMARY: DATE OF ADMISSION: 11/15/16 DATE OF DISCHARGE: 11/21/16 DISCHARGE DIAGNOSES: 1. Traumatic subdural hematoma. 2. Chronic kidney disease, stage 3. 3. Obesity. 4. Atrial fibrillation. 5. Hypertension. 6. Thoracic aortic aneurysm. HISTORY OF ILLNESS AND HOSPITAL COURSE: For complete history of the events leading up to his rehab stay, please see the history and physical dictated by Dr. Teri Juarez on 11/17/16. While on the rehab unit, the patient was maintained on heparin for DVT prophylaxis. His aspirin was held. Renal function remained stable. The patient's blood pressure was in good control. His heart rate was controlled with beta-blockers. The patient was seen by Physical and Occupational Therapy and made good gains with both disciplines. With Physical Therapy at the time of admission, the patient required minimal amount of assistance to a transfer, he was able to ambulate with minimal amount of assistance about 20 feet. With Occupational Therapy, he was min assist for toileting and toilet transfers. By the time of discharge, he was independent with transfers, independently ambulating 150 feet without an assistive device, was independent transferring without assistive devices, independent going up and down the stairs. He was independent with most of the activities of daily living. He was also seen by Speech Therapy during his rehab stay. He did make good gains with Speech Therapy and did not require further services after discharge. The patient was discharged home with his on 11/21/16. DISCHARGE DIET: Regular. DISCHARGE MEDICATIONS: Included 1. Catapres patch 0.2 mg changing every 7 days. 2. He was on Lopressor 100 mg every 12 hours. 3. Diovan 320 mg daily. 4. Norvasc 10 mg daily. FOLLOWUP: He will follow up with his primary care doctor, Dr. Bruce Browning as well as with Dr. Dylan Ruby in 2 to 3 weeks. Whether to resume anticoagulation can be discussed at that time. CC: Dr. Bruce Browning; Dr. Dylan Ruby * [id number]/[facility] #: [id number] MTDD
== END 2016-11-21 14:15 | disposition home or self-care (01) | DRG 860 ==
LOC: PMRU 11:00
PROVIDERS: ADMIT Physical Medicine & Rehabilitation; ATTEND Physical Medicine & Rehabilitation
PROC: F07Z5ZZ Bed Mobility Treatment (ICD-10-PCS; principal; 2016-11-15)
PROC: F07Z9ZZ Gait Training/Functional Ambulation Treatment (ICD-10-PCS; 2016-11-15)
PROC: F07Z8ZZ Transfer Training Treatment (ICD-10-PCS; 2016-11-15)
PROC: F07Z4ZZ Wheelchair Mobility Treatment (ICD-10-PCS; 2016-11-15)
PROC: F08Z0ZZ Bathing/Showering Techniques Treatment (ICD-10-PCS; 2016-11-15)
PROC: F08Z1ZZ Dressing Techniques Treatment (ICD-10-PCS; 2016-11-15)
PROC: F08Z3ZZ Feeding/Eating Treatment (ICD-10-PCS; 2016-11-15)
DX: S06.5X0D Traumatic subdural hemorrhage without loss of consciousness, subsequent encounter (principal); I71.2 Thoracic aortic aneurysm, without rupture; N18.3 Chronic kidney disease, stage 3 (moderate); W00.0XXD Fall on same level due to ice and snow, subsequent encounter; I12.9 Hypertensive chronic kidney disease with stage 1 through stage 4 chronic kidney disease, or unspecified chronic kidney disease; I48.2 Chronic atrial fibrillation; E66.9 Obesity, unspecified; M10.9 Gout, unspecified; Z68.31 Body mass index [BMI] 31.0-31.9, adult; Z79.899 Other long term (current) drug therapy; Z88.8 Allergy status to other drugs, medicaments and biological substances
CPT/HCPCS: 36415; 80048; 80053; 81003; 85025; A9270-GY; J1644

== ENCOUNTER 2018-12-27 17:56 | Emergency (ER) | payer BC ==
[2018-12-27 18:31] VITALS: BP 180/101
[2018-12-27 18:31] LABS: Influenza A Molecular NEGATIVE (Negative); Influenza B Molecular NEGATIVE (Negative)
[2018-12-27] MEDS ORDERED: DOXYcycline CAP(*) 100 MG PO ONE (18:56)
--- NOTE | 2018-12-27 19:02 | UC ---
Respiratory Complaint HPI - HPI Summary HPI Summary: Ill for about 5 days with cold symptoms, but worsened the past 2 days with productive cough of thick green sputum. - History of Current Complaint Chief Complaint: UCGeneralIllness Stated Complaint: CONGESTED Time Seen by Provider: 12/27/18 18:00 Hx Obtained From: Patient Onset/Duration: Gradual Onset Severity Initially: Mild Severity Currently: Mild Pain Intensity: 3 Aggravating Factors: Nothing Alleviating Factors: Nothing Associated Signs And Symptoms: Positive: Chills, Nasal Congestion. Negative: Dyspnea, Fever, Wheezing - Risk Factors Pulmonary Embolism Risk Factors: Negative Cardiac Risk Factors: CHF Pseudomonas Risk Factors: Negative Tuberculosis Risk Factors: Negative - Allergies/Home Medications Allergies/Adverse Reactions: Allergies Allergy/AdvReac Type Severity Reaction Status Date / Time nifedipine Allergy GI Upset Verified 12/27/18 18:10 Home Medications: Home Medications Allopurinol TAB* [Zyloprim 300 MG TAB*] 1 tab PO DAILY 12/27/18 [History Confirmed 12/27/18] Aspirin 81 mg CHEW TAB* [Aspirin Low Dose TAB*] 81 mg PO DAILY 12/27/18 [ History Confirmed 12/27/18] Labetalol TAB* [Trandate TAB*] 2 tab PO TID 12/27/18 [History Confirmed 12/27/18 ] Levothyroxine TAB* [Synthroid 75 MCG TAB*] 1 tab PO DAILY 12/27/18 [History Confirmed 12/27/18] Nitroglycerin 0.1 mg/Hr PATCH* [Nitroglycerin 2.5 MG PATCH*] 0.2 mg TRANSDERM BEDTIME 12/27/18 [History Confirmed 12/27/18] Torsemide TAB* [Demadex 20 MG*] 1 tab PO DAILY 12/27/18 [History Confirmed 12/27] dilTIAZem HCl [Cartia Xt] 1 tab PO DAILY 12/27/18 [History Confirmed 12/27/18] PMH/Surg Hx/FS Hx/Imm Hx - Surgical History Surgical History: Yes Surgery Procedure, Year, and Place: 2006: tried to do a cardiac cath but was unable to - ended up doing having a aurelio-cardial effusuion drained. 11/2016-rt craniotomy for sdh with drain - Family History Known Family History: Positive: Diabetes - Social History Alcohol Use: None Substance Use Type: None Smoking Status (MU): Never Smoked Tobacco - Immunization History Most Recent Influenza Vaccination: Fall 2014 Most Recent Tetanus Shot: up to date Most Recent Pneumonia Vaccination: Uknown Review of Systems All Other Systems Reviewed And Are Negative: Yes Constitutional: Positive: Chills Skin: Positive: Negative Eyes: Positive: Negative ENT: Positive: Negative Respiratory: Positive: Cough, Other - Productive cough of thick yellow sputum, no distress. Negative: Shortness Of Breath Cardiovascular: Positive: Negative Gastrointestinal: Positive: Negative Genitourinary: Positive: Negative Motor: Positive: Negative Neurovascular: Positive: Negative Musculoskeletal: Positive: Negative Neurological: Positive: Negative Psychological: Positive: Negative Is Patient Immunocompromised?: No Physical Exam Triage Information Reviewed: Yes Appearance: Well-Appearing, No Pain Distress, Well-Nourished Vital Signs: Initial Vital Signs Temp 100.4 F 12/27/18 18:01 Pulse 87 12/27/18 18:01 Resp 17 12/27/18 18:01 BP 201/95 12/27/18 18:01 Pulse Ox 98 12/27/18 18:01 Vital Signs Reviewed: Yes Eye Exam: Normal ENT: Positive: Nasal congestion, Nasal drainage - Clear nasal coryza Neck exam: Normal Neck: Positive: Supple, Nontender, No Lymphadenopathy Respiratory: Positive: No respiratory distress, Rhonchi - Rhonchi RLL posteriorly otherwise good air movement and CTA throughout rest of lung bagley. Cardiovascular: Positive: RRR - Mild I/ systolic murmur, Pulses Normal Abdominal Exam: Normal Abdomen Description: Positive: Nontender, No Organomegaly, Soft Bowel Sounds: Positive: Present Musculoskeletal Exam: Normal Neurological Exam: Normal Psychological Exam: Normal Skin Exam: Normal UC Diagnostic Evaluation - Laboratory O2 Sat by Pulse Oximetry: 96 Respiratory Course/Dx - Course Course Of Treatment: Cmfortable here. Reviewed the CXR with Dr. Roper. Possible RLL Pneumonia. - Differential Dx/Diagnosis Differential Diagnosis/HQI/PQRI: CHF Provider Diagnosis: Community acquired pneumonia - Physician Notification/Consults Discussed Patient Care With: Nhi Roper Time Discussed With Above Provider: 18:50 Discharge - Sign-Out/Discharge Documenting (check all that apply): Patient Departure All imaging exams completed and their final reports reviewed: No - Discharge Plan Condition: Good Disposition: HOME Prescriptions: DOXYcycline CAP(*) [DOXYcycline 100MG CAP(*)] 100 mg PO BID 10 Days #19 cap Patient Education Materials: Community Acquired Pneumonia (DC) Referrals: Bruce Browning MD [Primary Care Provider] - Additional Instructions: Do not eat dairy products or antacids 2 hours before you take the Doxycycline and 2 hours after you take it but be sure and take it with food. Definite follow up with your primary care provider in 2-3 days if no improvement. Go to the ER if you develop worsening symptoms, chest pain, difficulty breathing. - Billing Disposition and Condition Condition: GOOD Disposition: Home
--- NOTE | 2018-12-28 09:32 | UC ---
- Progress Note Progress Note: Chest x-ray from December 27, 2018 read by radiologist as right basilar atelectasis versus early consolidation. Provider interpretation from the same date is right lower lobe pneumonia therefore there is no discrepancy. Course/Dx - Diagnoses Provider Diagnoses: Community acquired pneumonia - Provider Notifications Time Discussed With Above Provider: 18:50 Discharge - Sign-Out/Discharge Documenting (check all that apply): Patient Departure All imaging exams completed and their final reports reviewed: Yes - Discharge Plan Condition: Good Disposition: HOME Prescriptions: DOXYcycline CAP(*) [DOXYcycline 100MG CAP(*)] 100 mg PO BID 10 Days #19 cap Patient Education Materials: Community Acquired Pneumonia (DC) Referrals: Bruce Browning MD [Primary Care Provider] - Additional Instructions: Do not eat dairy products or antacids 2 hours before you take the Doxycycline and 2 hours after you take it but be sure and take it with food. Definite follow up with your primary care provider in 2-3 days if no improvement. Go to the ER if you develop worsening symptoms, chest pain, difficulty breathing. - Billing Disposition and Condition Condition: GOOD Disposition: Home
== END 2018-12-27 19:05 | disposition home or self-care (01) ==
LOC: UCEAST 17:56
DX: J18.9 Pneumonia, unspecified organism (principal); Z88.8 Allergy status to other drugs, medicaments and biological substances
CPT/HCPCS: 71046; 99212; A9270-GY; G0463

== ENCOUNTER 2019-05-20 10:59 | Emergency (ER) | payer BC, OTHER ==
[2019-05-20 11:29] VITALS: BP 130/78
--- NOTE | 2019-05-20 11:41 | UC ---
Upper Extremity HPI - HPI Summary HPI Summary: 58-year-old male who sustained work-related injury of abrasions and minor skin tears to his right forearms when he missed a step as he was going down into an area for work and he started falling backwards and skin his forearms on the concrete wall. He denies any other injury, did not hit his head and denies any neck pain. His last tetanus is up-to-date. - History of Current Complaint Chief Complaint: UCUpperExtremity Stated Complaint: ARM ABRASIONS Time Seen by Provider: 05/20/19 11:41 Hx Obtained From: Patient ?: No Onset/Duration: Sudden Onset Severity Initially: Mild Severity Currently: Mild Pain Intensity: 0 Aggravating Factor(s): Nothing Alleviating Factor(s): Nothing Related History: Occupational Injury - Allergies/Home Medications Allergies/Adverse Reactions: Allergies Allergy/AdvReac Type Severity Reaction Status Date / Time nifedipine Allergy GI Upset Verified 05/20/19 11:14 PMH/Surg Hx/FS Hx/Imm Hx Previously Healthy: Yes Cardiovascular History: Hypertension, Atrial Fibrillation - Surgical History Surgical History: Yes Surgery Procedure, Year, and Place: 2006: tried to do a cardiac cath but was unable to - ended up doing having a aurelio-cardial effusuion drained. 11/2016-rt craniotomy for sdh with drain - Family History Known Family History: Positive: Diabetes - Social History Alcohol Use: None Substance Use Type: None Smoking Status (MU): Never Smoked Tobacco - Immunization History Most Recent Influenza Vaccination: Fall 2014 Most Recent Tetanus Shot: up to date Most Recent Pneumonia Vaccination: Uknown Review of Systems All Other Systems Reviewed And Are Negative: Yes Skin: Positive: Other - Numerous superficial abrasions to both forearms with some minor skin tears Motor: Positive: Negative Neurovascular: Positive: Negative Musculoskeletal: Positive: Negative Is Patient Immunocompromised?: No Physical Exam Triage Information Reviewed: Yes Appearance: Well-Appearing, No Pain Distress, Well-Nourished Vital Signs: Initial Vital Signs Temp 98.8 F 05/20/19 11:10 Pulse 83 05/20/19 11:10 Resp 17 05/20/19 11:10 BP 130/78 05/20/19 11:10 Pulse Ox 100 05/20/19 11:10 Vital Signs Reviewed: Yes Musculoskeletal: Positive: Strength Intact, ROM Intact, No Edema Neurological: Positive: Alert, Muscle Tone Normal Psychological Exam: Normal Skin Exam: Other - Numerous superficial abrasions and superficial skin tears to both forearms. Bleeding is controlled. No other injuries. Upper Extremity Course/Dx - Course Course Of Treatment: The abrasions were washed with copious amounts of water. I debrided to of the skin avulsion abrasions without difficulty. Bacitracin dressing was applied. - Differential Dx/Diagnosis Provider Diagnosis: Abrasion of forearm, left, Abrasion of forearm, right Discharge - Sign-Out/Discharge Documenting (check all that apply): Patient Departure All imaging exams completed and their final reports reviewed: No Studies - Discharge Plan Condition: Fair Disposition: HOME Patient Education Materials: Skin Tear (ED) Forms: *Work Release Referrals: Bruce Browning MD [Primary Care Provider] - Additional Instructions: Apply antibiotic ointment to the areas and change dressing daily. Follow-up with your primary care provider if no improvement or if worsening symptoms or if infection develop such as hot, red, tender, pus drainage or red streaks up your arm or if you run a fever. - Billing Disposition and Condition Condition: FAIR Disposition: Home - Attestation Statements Provider Attestation: I was available for consult. This patient was seen by the [facility]. The patient was not presented to, seen by, or examined by me. -Lisa
== END 2019-05-20 12:25 | disposition home or self-care (01) ==
LOC: UCEAST 10:59
DX: S50.812A Abrasion of left forearm, initial encounter (principal); S50.811A Abrasion of right forearm, initial encounter; W10.9XXA Fall (on) (from) unspecified stairs and steps, initial encounter; Y92.9 Unspecified place or not applicable; I10 Essential (primary) hypertension; I48.91 Unspecified atrial fibrillation
CPT/HCPCS: 99212; G0463

== ENCOUNTER 2021-01-27 20:14 | Observation (INO) ==
[2021-01-27 21:10] LABS: ABS Basophils 0.1 10^3/ul (0-0.2); ABS Eosinophils 0.8 10^3/ul (0-0.6); ABS Lymphocytes 0.8 10^3/ul (1.0-4.8); ABS Monocytes 0.8 10^3/ul (0-0.8); ABS Neutrophils 9.2 10^3/ul (1.5-7.7); Hematocrit 39 % (42-52); Lymphocyte % 6.8 %; Mean Corpuscular HGB Conc 33 g/dL (31-36); Mean Corpuscular Hemoglobin 27 pg (27-31); Mean Corpuscular Volume 83 fL (80-94); Mean Platelet Volume 8.4 fL (7.4-10.4); Nucleated Red Blood Cells % 0.1; Platelet Count 171 10^3/uL (150-450); Red Blood Count 4.72 10^6 /uL (4.18-5.48); Red Cell Distribution Width 16 % (10-15); White Blood Count 11.7 10^3/uL (3.5-10.8)
[2021-01-27 21:26] LABS: Influenza A Molecular Negative (Negative); Influenza B Molecular Negative (Negative)
[2021-01-27 21:28] LABS: ALT 15 U/L (7-52); AST 29 U/L (13-39); Albumin 3.7 g/dL (3.2-5.2); Albumin/Globulin Ratio 0.9 (1-3); Alkaline Phosphatase 197 U/L (34-104); Anion Gap 8 mmol/L (2-11); BUN/Creatinine Ratio 18.6 (8-20); Blood Urea Nitrogen 33 mg/dL (6-24); CO2 Carbon Dioxide 26 mmol/L (22-32); Calcium 8.9 mg/dL (8.6-10.3); Chloride 100 mmol/L (101-111); EGFR African American 47.9 (>60); EGFR Non-African American 39.6 (>60); Globulin 3.9 g/dL (2-4); Glucose 112 mg/dL (70-100); Potassium 4.8 mmol/L (3.5-5.0); Sodium 134 mmol/L (135-145); Total Protein 7.6 g/dL (6.4-8.9)
[2021-01-27 21:33] LABS: Troponin I 0.06 ng/mL (<0.03)
[2021-01-27 21:34] LABS: INR 1.62 (0.82-1.09)
[2021-01-27] MEDS ORDERED: Furosemide 20 mg/2 ml IV VIAL IV SLOW PU ONE (21:36)
[2021-01-27] MEDS ORDERED: Iodixanol (CONTRAST) 320 MG/ML 100 ML SDV IV ONE (21:40)
[2021-01-27] MEDS ORDERED: Ondansetron 4 mg VIAL 2 MG/ML 2 ml VIAL IV PRN (23:50)
[2021-01-27] MEDS ORDERED: Al Hydrox/Mg Hydrox/Simet LIQ 30 ML UDC PO PRN (23:50)
[2021-01-28] MEDS ORDERED: Furosemide 20 mg/2 ml IV VIAL IV ONE (00:05)
[2021-01-28 00:17] LABS: Magnesium 1.9 mg/dL (1.9-2.7)
[2021-01-28 00:42] LABS: TSH Ultra Thyroid Stim Horm 8.56 mcIU/mL (0.34-5.60)
[2021-01-28] MEDS: Nitroglycerin 0.1 mg/hr PATCH (2.5 mg) TRANSDERM SCH ×2 (01:46→21:47)
[2021-01-28 02:39] LABS: ABS Basophils 0.1 10^3/ul (0-0.2); ABS Eosinophils 0.1 10^3/ul (0-0.6); ABS Lymphocytes 0.8 10^3/ul (1.0-4.8); ABS Monocytes 0.9 10^3/ul (0-0.8); ABS Neutrophils 11.2 10^3/ul (1.5-7.7); Eosinophil % 0.6 %; Hematocrit 36 % (42-52); Hemoglobin 11.7 g/dL (14.0-18.0); Lymphocyte % 5.8 %; Mean Corpuscular HGB Conc 32 g/dL (31-36); Mean Corpuscular Hemoglobin 27 pg (27-31); Mean Corpuscular Volume 83 fL (80-94); Mean Platelet Volume 8.5 fL (7.4-10.4); Platelet Count 154 10^3/uL (150-450); Red Blood Count 4.35 10^6 /uL (4.18-5.48); Red Cell Distribution Width 16 % (10-15); White Blood Count 13.1 10^3/uL (3.5-10.8)
[2021-01-28 02:56] LABS: ALT 14 U/L (7-52); AST 26 U/L (13-39); Albumin 3.3 g/dL (3.2-5.2); Alkaline Phosphatase 170 U/L (34-104); Anion Gap 7 mmol/L (2-11); Blood Urea Nitrogen 33 mg/dL (6-24); CO2 Carbon Dioxide 25 mmol/L (22-32); Calcium 8.5 mg/dL (8.6-10.3); Chloride 102 mmol/L (101-111); EGFR African American 48.8 (>60); EGFR Non-African American 40.4 (>60); Globulin 3.4 g/dL (2-4); Glucose 118 mg/dL (70-100); Potassium 4.5 mmol/L (3.5-5.0); Sodium 134 mmol/L (135-145); Total Protein 6.7 g/dL (6.4-8.9)
[2021-01-28 02:59] LABS: Troponin I 0.06 ng/mL (<0.03)
[2021-01-28 04:04] LABS: Free T4 1.17 ng/dL (0.61-1.12)
[2021-01-28] MEDS: Heparin 5000 UNITS/ML 1 mL VIAL SUBCUT SCH ×3 (05:33→21:50)
[2021-01-28] MEDS: [UNRECOGNIZED DRUG - OTHER] PATCH OFF SCH (09:46)
[2021-01-28] MEDS: Timolol 0.5% OPTH.SOL BTL BOTH EYES SCH ×2 (09:47→21:49)
[2021-01-28 10:16] LABS: Magnesium 1.9 mg/dL (1.9-2.7)
[2021-01-28] MEDS ORDERED: Furosemide 20 mg/2 ml IV VIAL IV SLOW PU ONE (16:17)
[2021-01-28] MEDS ORDERED: Latanoprost 0.005% 2.5 ml BTL BOTH EYES SCH (18:00)
[2021-01-29] MEDS: Heparin 5000 UNITS/ML 1 mL VIAL SUBCUT SCH (05:38)
[2021-01-29] MEDS: Timolol 0.5% OPTH.SOL BTL BOTH EYES SCH (08:17)
[2021-01-29 08:19] LABS: ABS Basophils 0.1 10^3/ul (0-0.2); ABS Eosinophils 0.9 10^3/ul (0-0.6); ABS Lymphocytes 0.9 10^3/ul (1.0-4.8); ABS Monocytes 0.8 10^3/ul (0-0.8); ABS Neutrophils 4.8 10^3/ul (1.5-7.7); Eosinophil % 11.8 %; Hematocrit 38 % (42-52); Hemoglobin 12.5 g/dL (14.0-18.0); Lymphocyte % 12.2 %; Mean Corpuscular HGB Conc 33 g/dL (31-36); Mean Corpuscular Hemoglobin 27 pg (27-31); Mean Corpuscular Volume 84 fL (80-94); Mean Platelet Volume 8.3 fL (7.4-10.4); Platelet Count 152 10^3/uL (150-450); Red Blood Count 4.56 10^6 /uL (4.18-5.48); Red Cell Distribution Width 16 % (10-15); White Blood Count 7.6 10^3/uL (3.5-10.8)
[2021-01-29] MEDS: [UNRECOGNIZED DRUG - OTHER] PATCH OFF SCH (08:19)
[2021-01-29] MEDS ORDERED: Furosemide 20 mg/2 ml IV VIAL IV SLOW PU ONE (09:05)
[2021-01-29 13:08] VITALS: BP 134/67
== END 2021-01-29 13:05 | disposition home or self-care (01) ==
LOC: MED 20:14 → ED 20:14 → MED 01-28 00:49
PROVIDERS: ADMIT Pediatrics; ATTEND Hospitalist

== ENCOUNTER 2021-10-27 13:19 | Inpatient (IN) ==
[2021-10-27 14:13] LABS: ABS Basophils 0.1 10^3/ul (0-0.2); ABS Eosinophils 0.2 10^3/ul (0-0.6); ABS Lymphocytes 1.2 10^3/ul (1.0-4.8); ABS Monocytes 1.1 10^3/ul (0-0.8); ABS Neutrophils 8.9 10^3/ul (1.5-7.7); ABS Nucleated RBC 0.1 10^3/ul; Eosinophil % 1.5 %; Hematocrit 44 % (42-52); Hemoglobin 14.7 g/dL (14.0-18.0); Lymphocyte % 10.7 %; Mean Corpuscular HGB Conc 33 g/dL (31-36); Mean Corpuscular Hemoglobin 28 pg (27-31); Mean Corpuscular Volume 84 fL (80-94); Mean Platelet Volume 9.1 fL (7.4-10.4); Nucleated Red Blood Cells % 0.4; Platelet Count 206 10^3/uL (150-450); Red Blood Count 5.23 10^6 /uL (4.18-5.48); Red Cell Distribution Width 15 % (10-15); White Blood Count 11.6 10^3/uL (3.5-10.8)
[2021-10-27] MEDS ORDERED: Albuterol HFA INHALER 8 gm MDI INH ONE (14:20)
[2021-10-27 14:24] LABS: ALT 11 U/L (7-52); AST 19 U/L (13-39); Albumin 3.7 g/dL (3.2-5.2); Alkaline Phosphatase 109 U/L (35-149); Anion Gap 8 mmol/L (2-11); Blood Urea Nitrogen 39 mg/dL (6-24); CO2 Carbon Dioxide 25 mmol/L (22-32); Calcium 9.2 mg/dL (8.6-10.3); Chloride 104 mmol/L (101-111); Globulin 3.7 g/dL (2-4); Glucose 132 mg/dL (70-100); Potassium 4.3 mmol/L (3.5-5.0); Sodium 137 mmol/L (135-145); Total Protein 7.4 g/dL (6.4-8.9); eGFR CKD-EPI 36.2 (>60)
[2021-10-27 14:31] LABS: Troponin I 0.09 ng/mL (<0.03)
[2021-10-27] MEDS ORDERED: Furosemide 40 mg/4 ml IV VIAL IV SLOW PU ONE ×2 (14:32→15:57)
[2021-10-27] MEDS ORDERED: Ondansetron 4 mg VIAL 2 MG/ML 2 ml VIAL IV PRN (15:52)
[2021-10-27 17:20] LABS: Troponin I 0.08 ng/mL (<0.03)
[2021-10-27] MEDS: Heparin 5000 UNITS/ML 1 mL VIAL SUBCUT SCH (20:54)
[2021-10-27 20:58] LABS: Troponin I 0.09 ng/mL (<0.03)
[2021-10-27] MEDS: Nitroglycerin 0.2 mg/hr PATCH (5 mg) TRANSDERM SCH (23:49)
[2021-10-28] MEDS: Latanoprost 0.005% 2.5 ml BTL BOTH EYES SCH ×2 (00:16→19:55)
[2021-10-28] MEDS: CMC:Dorzolamide/Timolol OPTH (NF) 10 ML BOT BOTH EYES SCH ×3 (00:17→19:55)
[2021-10-28 08:29] LABS: ABS Eosinophils 0.1 10^3/ul (0-0.6); ABS Lymphocytes 0.9 10^3/ul (1.0-4.8); ABS Monocytes 0.9 10^3/ul (0-0.8); ABS Neutrophils 5.9 10^3/ul (1.5-7.7); Eosinophil % 0.9 %; Hematocrit 40 % (42-52); Hemoglobin 13.6 g/dL (14.0-18.0); Lymphocyte % 11.7 %; Mean Corpuscular HGB Conc 34 g/dL (31-36); Mean Corpuscular Hemoglobin 29 pg (27-31); Mean Corpuscular Volume 84 fL (80-94); Mean Platelet Volume 8.8 fL (7.4-10.4); Platelet Count 134 10^3/uL (150-450); Red Blood Count 4.77 10^6 /uL (4.18-5.48); Red Cell Distribution Width 15 % (10-15); White Blood Count 7.9 10^3/uL (3.5-10.8)
[2021-10-28 08:45] LABS: Potassium 3.9 mmol/L (3.5-5.0)
[2021-10-28 08:46] LABS: Calcium 8.7 mg/dL (8.6-10.3)
[2021-10-28 08:54] LABS: Troponin I 0.08 ng/mL (<0.03)
[2021-10-28] MEDS: Heparin 5000 UNITS/ML 1 mL VIAL SUBCUT SCH ×2 (08:57→19:48)
[2021-10-28] MEDS: cefTRIAXone 2 GM ADDV.VIAL 2 GM in NS 0.9% 100 ml BAG 100 ML IV SCH (08:57)
[2021-10-28] MEDS: Azithromycin 500 mg/250 ml NS 500 MG/250 ML BAG IVPB SCH (10:03)
[2021-10-28 17:35] LABS: Urine Creatinine Concentration 143.12 mg/dL
[2021-10-28] MEDS: Nitroglycerin 0.2 mg/hr PATCH (5 mg) TRANSDERM SCH (19:48)
[2021-10-29 07:48] LABS: ABS Basophils 0.1 10^3/ul (0-0.2); ABS Eosinophils 0.5 10^3/ul (0-0.6); ABS Lymphocytes 1.1 10^3/ul (1.0-4.8); ABS Monocytes 0.7 10^3/ul (0-0.8); ABS Neutrophils 4.8 10^3/ul (1.5-7.7); Eosinophil % 6.8 %; Hematocrit 39 % (42-52); Hemoglobin 12.6 g/dL (14.0-18.0); Lymphocyte % 15.3 %; Mean Corpuscular HGB Conc 33 g/dL (31-36); Mean Corpuscular Hemoglobin 28 pg (27-31); Mean Corpuscular Volume 86 fL (80-94); Mean Platelet Volume 8.9 fL (7.4-10.4); Nucleated Red Blood Cells % 0.1; Platelet Count 138 10^3/uL (150-450); Red Blood Count 4.48 10^6 /uL (4.18-5.48); Red Cell Distribution Width 15 % (10-15); White Blood Count 7.2 10^3/uL (3.5-10.8)
[2021-10-29] MEDS ORDERED: Albuterol/Ipratropium NEB.SOL (2.5/0.5 MG) 3 ML NEB.SOLN INH PRN (07:52)
[2021-10-29] MEDS ORDERED: Albuterol HFA INHALER 8 gm MDI INH PRN (07:53)
[2021-10-29 07:57] LABS: Calcium 8.4 mg/dL (8.6-10.3); Potassium 4.1 mmol/L (3.5-5.0); eGFR CKD-EPI 25.5 (>60)
[2021-10-29] MEDS: CMC:Dorzolamide/Timolol OPTH (NF) 10 ML BOT BOTH EYES SCH ×2 (08:06→22:04)
[2021-10-29] MEDS: cefTRIAXone 2 GM ADDV.VIAL 2 GM in NS 0.9% 100 ml BAG 100 ML IV SCH (08:06)
[2021-10-29] MEDS: Heparin 5000 UNITS/ML 1 mL VIAL SUBCUT SCH ×2 (08:07→22:03)
[2021-10-29] MEDS: Mometasone/Formoter 100/5 MDI INH SCH ×2 (09:07→19:38)
[2021-10-29] MEDS: Azithromycin 500 mg/250 ml NS 500 MG/250 ML BAG IVPB SCH (09:18)
[2021-10-29] MEDS: Latanoprost 0.005% 2.5 ml BTL BOTH EYES SCH (22:04)
[2021-10-29] MEDS: Nitroglycerin 0.2 mg/hr PATCH (5 mg) TRANSDERM SCH (22:06)
[2021-10-30 06:54] LABS: Hematocrit 39 % (42-52); Hemoglobin 12.8 g/dL (14.0-18.0); Mean Corpuscular HGB Conc 33 g/dL (31-36); Mean Corpuscular Hemoglobin 29 pg (27-31); Mean Corpuscular Volume 86 fL (80-94); Mean Platelet Volume 9.2 fL (7.4-10.4); Platelet Count 145 10^3/uL (150-450); Red Blood Count 4.47 10^6 /uL (4.18-5.48); Red Cell Distribution Width 16 % (10-15); White Blood Count 7.6 10^3/uL (3.5-10.8)
[2021-10-30 07:00] LABS: Calcium 8.6 mg/dL (8.6-10.3); Magnesium 1.8 mg/dL (1.9-2.7); eGFR CKD-EPI 19.8 (>60)
[2021-10-30] MEDS ORDERED: Magnesium Sulfate 2 gm BAG 2 GM/50 ML BAG IVPB ONE (07:20)
[2021-10-30] MEDS: Mometasone/Formoter 100/5 MDI INH SCH ×2 (07:49→20:19)
[2021-10-30] MEDS ORDERED: Lactated Ringers 1000 ml BAG 1,000 ML IV SCH (10:00)
[2021-10-30] MEDS: cefTRIAXone 2 GM ADDV.VIAL 2 GM in NS 0.9% 100 ml BAG 100 ML IV SCH (10:04)
[2021-10-30] MEDS: CMC:Dorzolamide/Timolol OPTH (NF) 10 ML BOT BOTH EYES SCH ×2 (10:11→21:29)
[2021-10-30] MEDS: Heparin 5000 UNITS/ML 1 mL VIAL SUBCUT SCH ×2 (10:12→21:26)
[2021-10-30] MEDS: Azithromycin 500 mg/250 ml NS 500 MG/250 ML BAG IVPB SCH (11:14)
[2021-10-30] MEDS ORDERED: Vancomycin 1,000 MG in NS 0.9% 250 ml 250 ML IVPB ONE (17:59)
[2021-10-30] MEDS ORDERED: Vancomycin per Pharmacy 1 EA NOTE FOLLOW UP SCH (18:00)
[2021-10-30] MEDS ORDERED: Vancomycin 1,250 MG in NS 0.9% 250 ml 250 ML IVPB ONE (19:00)
[2021-10-30 19:26] LABS: Urine Appearance Cloudy; Urine Bilirubin Negative (Negative); Urine Blood Negative (Negative); Urine Color Amber; Urine Glucose Negative (Negative); Urine Ketones Trace (Negative); Urine Nitrite Negative (Negative); Urine Protein Negative (Negative); Urine Specific Gravity 1.019 (1.002-1.030); Urine Urobilinogen Negative (Negative)
[2021-10-30] MEDS: Nitroglycerin 0.2 mg/hr PATCH (5 mg) TRANSDERM SCH (21:27)
[2021-10-30] MEDS: Latanoprost 0.005% 2.5 ml BTL BOTH EYES SCH (21:28)
[2021-10-30] MEDS ORDERED: Vancomycin 1,750 MG in NS 0.9% 500 ml BAG 500 ML IVPB ONE (21:30)
[2021-10-31 05:57] LABS: Hematocrit 40 % (42-52); Hemoglobin 13.4 g/dL (14.0-18.0); Mean Corpuscular HGB Conc 33 g/dL (31-36); Mean Corpuscular Hemoglobin 28 pg (27-31); Mean Corpuscular Volume 85 fL (80-94); Mean Platelet Volume 8.9 fL (7.4-10.4); Platelet Count 145 10^3/uL (150-450); Red Blood Count 4.72 10^6 /uL (4.18-5.48); Red Cell Distribution Width 15 % (10-15); White Blood Count 6.9 10^3/uL (3.5-10.8)
[2021-10-31 06:26] LABS: Blood Urea Nitrogen 63 mg/dL (6-24); CO2 Carbon Dioxide 26 mmol/L (22-32); Calcium 8.8 mg/dL (8.6-10.3); Chloride 101 mmol/L (101-111); Glucose 96 mg/dL (70-100); Magnesium 2.2 mg/dL (1.9-2.7); Sodium 135 mmol/L (135-145); eGFR CKD-EPI 19.2 (>60)
[2021-10-31 06:35] LABS: Anion Gap 8 mmol/L (2-11); Potassium 5.2 mmol/L (3.5-5.0)
[2021-10-31] MEDS: Mometasone/Formoter 100/5 MDI INH SCH ×2 (08:22→20:20)
[2021-10-31] MEDS: cefTRIAXone 2 GM ADDV.VIAL 2 GM in NS 0.9% 100 ml BAG 100 ML IV SCH ×2 (08:26→13:18)
[2021-10-31] MEDS ORDERED: Midazolam 5 mg/5 ml VIAL 1 mg/ml 5 ml VIAL (5 mg) ONE (08:58)
[2021-10-31] MEDS ORDERED: Flumazenil 0.5 mg/5 ml 0.1 MG/ML 5 ml VIAL ONE (08:59)
[2021-10-31] MEDS ORDERED: Naloxone 0.4 mg VIAL 0.4 mg/ml 1 ml VIAL ONE (08:59)
[2021-10-31] MEDS ORDERED: fentaNYL 100 mcg/2 ml 50 MCG/ML VIAL ONE (08:59)
[2021-10-31 09:45] LABS: Erythrocyte Sed Rate 15 mm/Hr (0-19)
[2021-10-31 10:30] LABS: Kappa Free Light Chain 6.06 mg/dL; Lambda Free Light Chain, S 6.14 mg/dL
[2021-10-31] MEDS ORDERED: Vancomycin Random Level NOTE FOLLOW UP ONE (11:00)
[2021-10-31 11:53] LABS: Cholesterol 53 mg/dL; Creatine Kinase 58 U/L (10-223); HDL Cholesterol 16.6 mg/dL; LDL Cholesterol 24 mg/dL; Triglycerides 62 mg/dL
[2021-10-31 11:57] LABS: Troponin I 0.05 ng/mL (<0.03)
[2021-10-31] MEDS ORDERED: Furosemide 20 mg/2 ml IV VIAL IV ONE (12:24)
[2021-10-31] MEDS: CMC:Dorzolamide/Timolol OPTH (NF) 10 ML BOT BOTH EYES SCH ×2 (13:17→21:12)
[2021-10-31 14:33] LABS: Albumin 2.9 g/dL (3.4-4.7); Albumin/Globulin Ratio 0.99; Gamma Globulin 1.6 g/dL (0.6-1.6); Total Protein(PEP) 5.8 g/dL (6.3 - 7.9)
[2021-10-31 14:50] LABS: Urine Kappa Total Light Chain <0.9000 mg/dL (<0.9000); Urine Lambda Total Light Chain <0.7000 mg/dL (<0.7000)
[2021-10-31] MEDS ORDERED: Vancomycin 750 MG in NS 0.9% 250 ML IVPB ONE (21:00)
[2021-10-31] MEDS: Nitroglycerin 0.2 mg/hr PATCH (5 mg) TRANSDERM SCH (21:11)
[2021-10-31] MEDS: Latanoprost 0.005% 2.5 ml BTL BOTH EYES SCH (21:12)
[2021-10-31] MEDS: Heparin 5000 UNITS/ML 1 mL VIAL SUBCUT SCH (21:13)
[2021-11-01 06:18] LABS: Hematocrit 37 % (42-52); Hemoglobin 12.3 g/dL (14.0-18.0); Mean Corpuscular HGB Conc 34 g/dL (31-36); Mean Corpuscular Hemoglobin 29 pg (27-31); Mean Corpuscular Volume 85 fL (80-94); Platelet Count 128 10^3/uL (150-450); Red Cell Distribution Width 15 % (10-15); White Blood Count 6.3 10^3/uL (3.5-10.8)
[2021-11-01 06:38] LABS: Calcium 8.4 mg/dL (8.6-10.3); Potassium 5.1 mmol/L (3.5-5.0); eGFR CKD-EPI 23.2 (>60)
[2021-11-01] MEDS: cefTRIAXone 2 GM ADDV.VIAL 2 GM in NS 0.9% 100 ml BAG 100 ML IV SCH (08:18)
[2021-11-01] MEDS: Heparin 5000 UNITS/ML 1 mL VIAL SUBCUT SCH ×2 (08:19→21:44)
[2021-11-01] MEDS: CMC:Dorzolamide/Timolol OPTH (NF) 10 ML BOT BOTH EYES SCH ×2 (08:19→21:44)
[2021-11-01] MEDS: Mometasone/Formoter 100/5 MDI INH SCH ×2 (08:44→19:45)
[2021-11-01 10:56] LABS: Albumin 16.8 mg/dL; Albumin/Globulin Ratio 2.03; Protein,Total, Random Urine 25 mg/dL
[2021-11-01] MEDS ORDERED: Vancomycin Random Level NOTE FOLLOW UP ONE (20:30)
[2021-11-01] MEDS: Latanoprost 0.005% 2.5 ml BTL BOTH EYES SCH (21:44)
[2021-11-01] MEDS: Nitroglycerin 0.2 mg/hr PATCH (5 mg) TRANSDERM SCH (21:44)
[2021-11-01] MEDS ORDERED: Vancomycin 750 MG in NS 0.9% 250 ML IVPB ONE (22:00)
[2021-11-02 01:07] VITALS: BP 146/77
[2021-11-02] MEDS ORDERED: Vancomycin Random Level NOTE FOLLOW UP ONE (20:00)
== END 2021-11-02 01:00 | disposition short-term general hospital (02) | DRG 200 ==
LOC: ED 13:19 → EDHOLD 13:19 → SUATTDRO 15:52 → MEDTELE 20:18 → SUATTDRO 10-28 11:00
PROVIDERS: ADMIT Student in an Organized Health Care Education/Training Program; ATTEND Internal Medicine